=== PATIENT | male | born 1950 | race Caucasian/White ===

== ENCOUNTER → 2016-10-06 | Outpatient (CLI) | payer MEDICARE, OTHER ==
[2016-10-06 10:41] LABS: ALBUMIN 3.9 GM/DL (3.2-5.2); ALBUMIN/GLOBULIN RATIO 1.5 (1.00-1.93); BILIRUBIN,DIRECT 0.2 MG/DL (0.0-0.2); BILIRUBIN,TOTAL 0.8 MG/DL (0.2-1.0); TOTAL PROTEIN 6.5 GM/DL (6.4-8.2)
== END ==
LOC: M WUC 08:20
PROVIDERS: ATTEND Physician Assistant Medical
DX: E11.65 Type 2 diabetes mellitus with hyperglycemia (principal)

== ENCOUNTER → 2017-01-05 | Outpatient (CLI) | payer MEDICARE, OTHER ==
[2017-01-05 13:49] LABS: MEAN CORPUSCULAR HEMOGLOBIN 32.6 pg (27.0-33.0); MEAN CORPUSCULAR HGB CONC 34.5 g/dl (32.0-36.5); MEAN CORPUSCULAR VOLUME 94.6 fl (80.0-96.0); RED CELL DISTRIBUTION WIDTH 12.7 % (11.5-14.5); WHITE BLOOD COUNT 4.9 K/mm3 (4.0-10.0)
[2017-01-05 13:57] LABS: ALBUMIN 3.7 GM/DL (3.2-5.2); ALBUMIN/GLOBULIN RATIO 1.42 (1.00-1.93); ALKALINE PHOSPHATASE 50 U/L (45-117); ALT/SGPT 34 U/L (12-78); ANION GAP 4 MEQ/L (8-16); AST/SGOT 18 U/L (15-37); BILIRUBIN,TOTAL 1.1 MG/DL (0.2-1.0); BLOOD UREA NITROGEN 18 MG/DL (7-18); CALCIUM LEVEL 8.9 MG/DL (8.8-10.2); CARBON DIOXIDE LEVEL 33 MEQ/L (21-32); CHLORIDE LEVEL 107 MEQ/L (98-107); CHOLESTEROL LEVEL 127 MG/DL (<200); CREATININE FOR GFR 0.86 MG/DL (0.70-1.30); GLOMERULAR FILTRATION RATE > 60.0 (>49); GLUCOSE, FASTING 101 MG/DL (80-110); POTASSIUM SERUM 4.2 MEQ/L (3.5-5.1); SODIUM LEVEL 144 MEQ/L (136-145); TOTAL PROTEIN 6.3 GM/DL (6.4-8.2); TRIGLYCERIDES LEVEL 222 MG/DL (<150)
== END ==
LOC: M WUC 08:43
PROVIDERS: ATTEND Physician Assistant
DX: I25.10 Atherosclerotic heart disease of native coronary artery without angina pectoris (principal)

== ENCOUNTER → 2017-04-01 | Outpatient (CLI) | payer MEDICARE, OTHER ==
[2017-04-01 13:52] LABS: ANION GAP 4 MEQ/L (8-16); BLOOD UREA NITROGEN 20 MG/DL (7-18); CALCIUM LEVEL 9.3 MG/DL (8.8-10.2); CARBON DIOXIDE LEVEL 31 MEQ/L (21-32); CHLORIDE LEVEL 109 MEQ/L (98-107); CREATININE FOR GFR 0.86 MG/DL (0.70-1.30); GLOMERULAR FILTRATION RATE > 60.0 (>49); GLUCOSE, FASTING 119 MG/DL (80-110); POTASSIUM SERUM 4.7 MEQ/L (3.5-5.1); SODIUM LEVEL 144 MEQ/L (136-145)
== END ==
LOC: M WUC 08:43
PROVIDERS: ATTEND Physician Assistant Medical
DX: E11.65 Type 2 diabetes mellitus with hyperglycemia (principal)

== ENCOUNTER → 2017-07-09 | Outpatient (CLI) | payer MEDICARE, OTHER ==
[2017-07-09 10:43] LABS: ALBUMIN 3.8 GM/DL (3.2-5.2); ALBUMIN/GLOBULIN RATIO 1.36 (1.00-1.93); ALKALINE PHOSPHATASE 52 U/L (45-117); ALT/SGPT 44 U/L (12-78); ANION GAP 7 MEQ/L (8-16); AST/SGOT 24 U/L (7-37); BLOOD UREA NITROGEN 21 MG/DL (7-18); CALCIUM LEVEL 9.2 MG/DL (8.8-10.2); CARBON DIOXIDE LEVEL 32 MEQ/L (21-32); CHLORIDE LEVEL 104 MEQ/L (98-107); CREATININE FOR GFR 0.83 MG/DL (0.70-1.30); GLOMERULAR FILTRATION RATE > 60.0 (>49); GLUCOSE, FASTING 115 MG/DL (80-110); SODIUM LEVEL 143 MEQ/L (136-145); TOTAL PROTEIN 6.6 GM/DL (6.4-8.2)
== END ==
LOC: M WUC 08:36
PROVIDERS: ATTEND Physician Assistant
DX: I25.10 Atherosclerotic heart disease of native coronary artery without angina pectoris (principal)

== ENCOUNTER → 2017-10-14 | Outpatient (CLI) | payer MEDICARE, OTHER ==
[2017-10-14 12:34] LABS: ANION GAP 8 MEQ/L (8-16); BLOOD UREA NITROGEN 19 MG/DL (7-18); CALCIUM LEVEL 9.1 MG/DL (8.8-10.2); CARBON DIOXIDE LEVEL 30 MEQ/L (21-32); CHLORIDE LEVEL 106 MEQ/L (98-107); CHOLESTEROL LEVEL 131 MG/DL (<200); CHOLESTEROL RISK RATIO 2.519 (<5); CREATININE FOR GFR 0.79 MG/DL (0.70-1.30); GLOMERULAR FILTRATION RATE > 60.0 (>49); GLUCOSE, FASTING 90 MG/DL (70-100); HDL CHOLESTEROL 52 MG/DL (>40); LDL CHOLESTEROL 55.4 MG/DL (<100); NON-HDL-C 79 MG/DL; POTASSIUM SERUM 4.6 MEQ/L (3.5-5.1); SODIUM LEVEL 144 MEQ/L (136-145); TRIGLYCERIDES LEVEL 118 MG/DL (<150)
[2017-10-14 12:56] LABS: MALB URINE SIEMENS 18.1 MG/L; MAU/CREAT RATIO 9.6 MCG/MG (0.0-30.0)
== END ==
LOC: M WUC 08:35
DX: E11.65 Type 2 diabetes mellitus with hyperglycemia (principal)
CPT/HCPCS: 84443

== ENCOUNTER → 2018-01-13 | Outpatient (CLI) | payer MEDICARE, OTHER ==
[2018-01-13 12:23] LABS: HEMOGLOBIN 15.5 g/dl (13.5-17.5); MEAN CORPUSCULAR HEMOGLOBIN 32.1 pg (27.0-33.0); MEAN CORPUSCULAR HGB CONC 34.4 g/dl (32.0-36.5); MEAN CORPUSCULAR VOLUME 93.2 fl (80.0-96.0); PLATELET COUNT, AUTOMATED 161 10^3/uL (150-450); RED BLOOD COUNT 4.83 10^6/uL (4.30-6.10); RED CELL DISTRIBUTION WIDTH 12.6 % (11.5-14.5); WHITE BLOOD COUNT 5.1 10^3/uL (4.0-10.0)
[2018-01-13 12:56] LABS: ALBUMIN 3.8 GM/DL (3.2-5.2); ALBUMIN/GLOBULIN RATIO 1.46 (1.00-1.93); ALKALINE PHOSPHATASE 52 U/L (45-117); ALT/SGPT 26 U/L (12-78); ANION GAP 6 MEQ/L (8-16); AST/SGOT 13 U/L (7-37); BILIRUBIN,TOTAL 0.9 MG/DL (0.2-1.0); BLOOD UREA NITROGEN 15 MG/DL (7-18); CALCIUM LEVEL 8.5 MG/DL (8.8-10.2); CARBON DIOXIDE LEVEL 29 MEQ/L (21-32); CHLORIDE LEVEL 109 MEQ/L (98-107); CHOLESTEROL LEVEL 105 MG/DL (<200); CHOLESTEROL RISK RATIO 2.763 (<5); CREATININE FOR GFR 0.79 MG/DL (0.70-1.30); GLOMERULAR FILTRATION RATE > 60.0 (>49); GLUCOSE, FASTING 100 MG/DL (70-100); HDL CHOLESTEROL 38 MG/DL (>40); LDL CHOLESTEROL 29.6 MG/DL (<100); NON-HDL-C 67 MG/DL; POTASSIUM SERUM 4.5 MEQ/L (3.5-5.1); SODIUM LEVEL 144 MEQ/L (136-145); TOTAL PROTEIN 6.4 GM/DL (6.4-8.2); TRIGLYCERIDES LEVEL 187 MG/DL (<150)
== END ==
LOC: M WUC 08:27
DX: I25.10 Atherosclerotic heart disease of native coronary artery without angina pectoris (principal); I50.32 Chronic diastolic (congestive) heart failure; E78.2 Mixed hyperlipidemia
CPT/HCPCS: 80053

== ENCOUNTER → 2018-08-05 | Outpatient (CLI) | payer MEDICARE, OTHER ==
[2018-08-05 14:01] LABS: ANION GAP 6 MEQ/L (8-16); BLOOD UREA NITROGEN 23 MG/DL (7-18); CALCIUM LEVEL 9.1 MG/DL (8.8-10.2); CARBON DIOXIDE LEVEL 33 MEQ/L (21-32); CHLORIDE LEVEL 105 MEQ/L (98-107); CREATININE FOR GFR 0.95 MG/DL (0.70-1.30); GLOMERULAR FILTRATION RATE > 60.0 (>42); GLUCOSE, FASTING 111 MG/DL (70-100); POTASSIUM SERUM 4.9 MEQ/L (3.5-5.1); SODIUM LEVEL 144 MEQ/L (136-145)
== END ==
LOC: M WUC 09:35
DX: I50.32 Chronic diastolic (congestive) heart failure (principal)
CPT/HCPCS: 80048

== ENCOUNTER → 2018-12-30 | Outpatient (CLI) | payer MEDICARE, OTHER ==
[2018-12-30 09:33] LABS: HEMATOCRIT 47.9 % (42.0-52.0); HEMOGLOBIN 16.4 g/dl (13.5-17.5); MEAN CORPUSCULAR HEMOGLOBIN 32.2 pg (27.0-33.0); MEAN CORPUSCULAR HGB CONC 34.2 g/dl (32.0-36.5); MEAN CORPUSCULAR VOLUME 94.1 fl (80.0-96.0); PLATELET COUNT, AUTOMATED 171 10^3/uL (150-450); RED BLOOD COUNT 5.09 10^6/uL (4.30-6.10); WHITE BLOOD COUNT 5.9 10^3/uL (4.0-10.0)
[2018-12-30 10:03] LABS: ALBUMIN 4.1 GM/DL (3.2-5.2); ALT/SGPT 31 U/L (12-78); AMYLASE 62 U/L (25-115); BILIRUBIN,TOTAL 1.2 MG/DL (0.2-1.0); BLOOD UREA NITROGEN 20 MG/DL (7-18); CALCIUM LEVEL 8.9 MG/DL (8.8-10.2); CARBON DIOXIDE LEVEL 32 MEQ/L (21-32); CHLORIDE LEVEL 106 MEQ/L (98-107); CHOLESTEROL LEVEL 144 MG/DL (<200); CHOLESTEROL RISK RATIO 3.348 (<5); CREATININE FOR GFR 0.83 MG/DL (0.70-1.30); GLOMERULAR FILTRATION RATE > 60.0 (>42); GLUCOSE, FASTING 87 MG/DL (70-100); HDL CHOLESTEROL 43 MG/DL (>40); LDL CHOLESTEROL 54 MG/DL (<100); LIPASE 99 U/L (73-393); NON-HDL-C 101 MG/DL; PROSTATIC SPECIFIC AG MONITOR 0.45 NG/ML (< 4.00); SODIUM LEVEL 144 MEQ/L (136-145); TOTAL PROTEIN 6.7 GM/DL (6.4-8.2); TRIGLYCERIDES LEVEL 235 MG/DL (<150)
[2018-12-30 10:47] LABS: HEMOGLOBIN A1c 7.1 %
== END ==
LOC: M LAB 08:09
PROVIDERS: ATTEND Family Medicine
DX: I10 Essential (primary) hypertension (principal); E03.9 Hypothyroidism, unspecified; E11.9 Type 2 diabetes mellitus without complications; Z87.19 Personal history of other diseases of the digestive system

== ENCOUNTER → 2019-01-12 | Outpatient (CLI) | payer MEDICARE, OTHER ==
[2019-01-12 14:11] LABS: MALB URINE SIEMENS 19.6 MG/L; MAU/CREAT RATIO 14.8 MCG/MG (0.0-30.0)
== END ==
LOC: M WUC 08:45
PROVIDERS: ATTEND Nurse Practitioner Family
DX: E11.65 Type 2 diabetes mellitus with hyperglycemia (principal)

== ENCOUNTER → 2019-01-12 | Outpatient (CLI) | payer MEDICARE, OTHER ==
[2019-01-12 13:30] LABS: HEMATOCRIT 48.2 % (42.0-52.0); HEMOGLOBIN 16.2 g/dl (13.5-17.5); MEAN CORPUSCULAR HEMOGLOBIN 32.4 pg (27.0-33.0); MEAN CORPUSCULAR HGB CONC 33.6 g/dl (32.0-36.5); MEAN CORPUSCULAR VOLUME 96.4 fl (80.0-96.0); PLATELET COUNT, AUTOMATED 170 10^3/uL (150-450); WHITE BLOOD COUNT 5.8 10^3/uL (4.0-10.0)
[2019-01-12 13:35] LABS: ALBUMIN 3.9 GM/DL (3.2-5.2); ALT/SGPT 26 U/L (12-78); BILIRUBIN,TOTAL 0.8 MG/DL (0.2-1.0); BLOOD UREA NITROGEN 21 MG/DL (7-18); CALCIUM LEVEL 9.2 MG/DL (8.8-10.2); CARBON DIOXIDE LEVEL 29 MEQ/L (21-32); CHLORIDE LEVEL 107 MEQ/L (98-107); CHOLESTEROL LEVEL 126 MG/DL (<200); CREATININE FOR GFR 0.82 MG/DL (0.70-1.30); GLOMERULAR FILTRATION RATE > 60.0 (>42); GLUCOSE, FASTING 117 MG/DL (70-100); HDL CHOLESTEROL 39 MG/DL (>40); LDL CHOLESTEROL 41 MG/DL (<100); NON-HDL-C 87 MG/DL; POTASSIUM SERUM 4.3 MEQ/L (3.5-5.1); SODIUM LEVEL 141 MEQ/L (136-145); TOTAL PROTEIN 6.1 GM/DL (6.4-8.2); TRIGLYCERIDES LEVEL 229 MG/DL (<150)
== END ==
LOC: M WUC 08:48
PROVIDERS: ATTEND Physician Assistant
DX: I25.10 Atherosclerotic heart disease of native coronary artery without angina pectoris (principal); I50.32 Chronic diastolic (congestive) heart failure; E78.2 Mixed hyperlipidemia; E11.65 Type 2 diabetes mellitus with hyperglycemia

== ENCOUNTER → 2019-08-07 | Outpatient (CLI) | payer MEDICARE, OTHER ==
[2019-08-07 16:39] LABS: BLOOD UREA NITROGEN 19 MG/DL (7-18); CALCIUM LEVEL 8.7 MG/DL (8.8-10.2); CARBON DIOXIDE LEVEL 32 MEQ/L (21-32); CHLORIDE LEVEL 107 MEQ/L (98-107); CREATININE FOR GFR 0.88 MG/DL (0.70-1.30); GLOMERULAR FILTRATION RATE > 60.0 (>42); GLUCOSE, FASTING 147 MG/DL (70-100); POTASSIUM SERUM 4.2 MEQ/L (3.5-5.1); SODIUM LEVEL 143 MEQ/L (136-145)
== END ==
LOC: M WUC 11:36
PROVIDERS: ATTEND Physician Assistant
DX: I50.32 Chronic diastolic (congestive) heart failure (principal)

== ENCOUNTER → 2019-11-27 | Outpatient (REF) | payer MEDICARE, OTHER ==
[2019-11-27 13:16] LABS: CREATININE, URINE 60.5 MG/DL; MAU/CREAT RATIO 18.1 MCG/MG (0.0-30.0)
== END ==
LOC: M LABDRAW1 09:45
PROVIDERS: ATTEND Nurse Practitioner Family
DX: E11.65 Type 2 diabetes mellitus with hyperglycemia (principal)

== ENCOUNTER → 2020-01-22 | Outpatient (CLI) | payer MEDICARE, OTHER ==
[2020-01-22 10:03] LABS: HEMATOCRIT 48.8 % (42.0-52.0); HEMOGLOBIN 16.4 g/dl (13.5-17.5); MEAN CORPUSCULAR HEMOGLOBIN 31.9 pg (27.0-33.0); MEAN CORPUSCULAR HGB CONC 33.6 g/dl (32.0-36.5); MEAN CORPUSCULAR VOLUME 94.9 fl (80.0-96.0); PLATELET COUNT, AUTOMATED 164 10^3/uL (150-450); RED BLOOD COUNT 5.14 10^6/uL (4.30-6.10); WHITE BLOOD COUNT 4.9 10^3/uL (4.0-10.0)
[2020-01-22 10:09] LABS: ALBUMIN 3.7 GM/DL (3.2-5.2); ALT/SGPT 37 U/L (12-78); BLOOD UREA NITROGEN 20 MG/DL (7-18); CARBON DIOXIDE LEVEL 32 MEQ/L (21-32); CHLORIDE LEVEL 105 MEQ/L (98-107); CHOLESTEROL LEVEL 127 MG/DL (<200); CHOLESTEROL RISK RATIO 2.822 (<5); CREATININE FOR GFR 0.82 MG/DL (0.70-1.30); GLOMERULAR FILTRATION RATE > 60.0 (>42); GLUCOSE, FASTING 89 MG/DL (70-100); HDL CHOLESTEROL 45 MG/DL (>40); LDL CHOLESTEROL 59 MG/DL (<100); NON-HDL-C 82 MG/DL; POTASSIUM SERUM 4.4 MEQ/L (3.5-5.1); SODIUM LEVEL 144 MEQ/L (136-145); TOTAL PROTEIN 6.6 GM/DL (6.4-8.2); TRIGLYCERIDES LEVEL 113 MG/DL (<150)
== END ==
LOC: M WUC 08:02
PROVIDERS: ATTEND Physician Assistant
DX: I25.10 Atherosclerotic heart disease of native coronary artery without angina pectoris (principal); I50.32 Chronic diastolic (congestive) heart failure; E78.2 Mixed hyperlipidemia

== ENCOUNTER → 2020-07-23 | Outpatient (CLI) | payer MEDICARE, OTHER ==
[2020-07-23 11:44] LABS: BLOOD UREA NITROGEN 20 MG/DL (7-18); CALCIUM LEVEL 9.4 MG/DL (8.8-10.2); CARBON DIOXIDE LEVEL 30 MEQ/L (21-32); CHLORIDE LEVEL 106 MEQ/L (98-107); CREATININE FOR GFR 0.88 MG/DL (0.70-1.30); GLOMERULAR FILTRATION RATE > 60.0 (>42); GLUCOSE, FASTING 104 MG/DL (70-100); SODIUM LEVEL 140 MEQ/L (136-145)
== END ==
LOC: M WUC 08:35
PROVIDERS: ATTEND Physician Assistant
DX: I50.32 Chronic diastolic (congestive) heart failure (principal)

== ENCOUNTER → 2021-01-22 | Outpatient (CLI) | payer MEDICARE, OTHER ==
[2021-01-22 11:06] LABS: HEMATOCRIT 48.4 % (42.0-52.0); MEAN CORPUSCULAR HEMOGLOBIN 31.6 pg (27.0-33.0); MEAN CORPUSCULAR HGB CONC 33.1 g/dl (32.0-36.5); MEAN CORPUSCULAR VOLUME 95.7 fl (80.0-96.0); PLATELET COUNT, AUTOMATED 162 10^3/uL (150-450); RED BLOOD COUNT 5.06 10^6/uL (4.30-6.10); WHITE BLOOD COUNT 5.2 10^3/uL (4.0-10.0)
[2021-01-22 11:35] LABS: ALBUMIN 3.8 GM/DL (3.2-5.2); ALT/SGPT 31 U/L (12-78); BILIRUBIN,TOTAL 1.3 MG/DL (0.2-1.0); BLOOD UREA NITROGEN 25 MG/DL (7-18); CALCIUM LEVEL 8.9 MG/DL (8.8-10.2); CARBON DIOXIDE LEVEL 32 MEQ/L (21-32); CHLORIDE LEVEL 108 MEQ/L (98-107); CHOLESTEROL LEVEL 122 MG/DL (<200); CHOLESTEROL RISK RATIO 3.128 (<5); CREATININE FOR GFR 0.86 MG/DL (0.70-1.30); GLOMERULAR FILTRATION RATE > 60.0 (>42); GLUCOSE, FASTING 83 MG/DL (70-100); HDL CHOLESTEROL 39 MG/DL (>40); LDL CHOLESTEROL 49 MG/DL (<100); NON-HDL-C 83 MG/DL; POTASSIUM SERUM 4.8 MEQ/L (3.5-5.1); SODIUM LEVEL 144 MEQ/L (136-145); TOTAL PROTEIN 6.4 GM/DL (6.4-8.2); TRIGLYCERIDES LEVEL 169 MG/DL (<150)
== END ==
LOC: M WUC 08:18
PROVIDERS: ATTEND Physician Assistant
DX: I25.10 Atherosclerotic heart disease of native coronary artery without angina pectoris (principal); I50.32 Chronic diastolic (congestive) heart failure; E78.2 Mixed hyperlipidemia

== ENCOUNTER → 2021-02-25 | Outpatient (REF) | payer MEDICARE, OTHER ==
[2021-02-25 14:24] LABS: MALB URINE SIEMENS 9.5 MG/L; MAU/CREAT RATIO 6.8 MCG/MG (0.0-30.0)
[2021-02-25 14:25] LABS: ALBUMIN 3.8 GM/DL (3.2-5.2); ALT/SGPT 39 U/L (12-78); BLOOD UREA NITROGEN 28 MG/DL (7-18); CALCIUM LEVEL 8.7 MG/DL (8.8-10.2); CARBON DIOXIDE LEVEL 29 MEQ/L (21-32); CHLORIDE LEVEL 108 MEQ/L (98-107); CHOLESTEROL LEVEL 129 MG/DL (<200); CHOLESTEROL RISK RATIO 3.394 (<5); GLOMERULAR FILTRATION RATE > 60.0 (>42); GLUCOSE, FASTING 98 MG/DL (70-100); HDL CHOLESTEROL 38 MG/DL (>40); LDL CHOLESTEROL 63 MG/DL (<100); NON-HDL-C 91 MG/DL; SODIUM LEVEL 143 MEQ/L (136-145); TOTAL PROTEIN 6.3 GM/DL (6.4-8.2); TRIGLYCERIDES LEVEL 139 MG/DL (<150)
== END ==
LOC: M WUC 11:15 → M LAB REF 11:15
PROVIDERS: ATTEND Nurse Practitioner Family
DX: E11.65 Type 2 diabetes mellitus with hyperglycemia (principal); E78.2 Mixed hyperlipidemia

== ENCOUNTER → 2021-03-27 | Outpatient (CLI) | payer MEDICARE, OTHER ==
--- NOTE | 2021-03-27 10:44 | REP ---
INDICATION: ABD PAIN, GALL STONES. COMPARISON: 01/09/2019 which showed fatty infiltration of the liver TECHNIQUE: Transabdominal scanning FINDINGS: Multiple ultrasonographic images of the liver show slight diffuse increased echoes throughout the hepatic parenchyma without evidence of a mass or ductal dilatation. The common bile duct measures approximately 5 mm in its greatest transverse dimension. Multiple ultrasonographic images of the gallbladder show no focal or diffuse gallbladder wall thickening. There are no echogenic foci within the gallbladder lumen, which casts acoustic shadows. There is no pericholecystic edema. Images of the pancreatic region show no gross abnormality. The imaged portion of the right kidney is unremarkable. IMPRESSION: Mild fatty infiltration of the liver. No significant change from the prior exam Accredited by the [employer] in General Ultrasound. <Electronically signed by Jose Ballesteros > 03/27/21 0124
== END ==
LOC: M RAD 10:03
PROVIDERS: ATTEND Family Medicine
DX: R10.9 Unspecified abdominal pain (principal)

== ENCOUNTER → 2021-07-09 | Outpatient (CLI) | payer MEDICARE, OTHER ==
[~2021-07-09] MED LIST: AMLO1TAB24 PO; ATOR80TA59 PO; BAYE81TA10 PO; CARV12.5 PO; CLOP75TA2 PO; COQ-100C5 PO; CULT10CA4 PO; D32000TA2 PO; FISH13602 PO; FLON1SPR; FLUC150T PO; FURO40TA2 PO; INSULANT SC; JARD1TAB PO; LISI40TA4 PO; METF-838 PO; NITR4TASL SL; OCUVTAB4 PO; OMEP-218 PO; REST0.05 OD; leg cramps PO
== END ==
LOC: M LABSMTC 10:30
PROVIDERS: ATTEND Anesthesiology
DX: Z01.812 Encounter for preprocedural laboratory examination (principal); Z20.822 Contact with and (suspected) exposure to COVID-19

== ENCOUNTER 2021-07-14 09:07 | Day surgery (SDC) | payer MEDICARE, OTHER ==
[~2021-07-14] VITALS: Ht 170.2 cm; Wt 76.1 kg
[~2021-07-14 09:07] MED LIST changes: +NS 1,000 ML IV ONE
--- OUTSIDE RECORDS SUMMARY | 2021-07-14 09:21 | CCD | Continuity of Care Document ---
Author Author Jose Armando LUCIA MD Organization Unknown Address [place] [address] Phone [phone] Care Team Providers Care System Operator Name Role Phone Racquel Hudson MD AUTM [phone] Gwyn Chu AUTM [phone] Sancho Workman MD AUTM [phone] Palmira Snell MD AUTM [phone] Chandra Kaur MD AUTM [phone] Natalya Spence AUTM Problems Active Problems Provider Date Coronary arteriosclerosis ZAINA Silva Onset: 11/17/2011 Old myocardial infarction ZAINA Silva Onset: 11/17/2011 Patient post percutaneous transluminal coronary angiop lasty ZAINA Silva Onset: 11/17/2011 Chronic diastolic heart failure ZAINA Silva Onset: 08/18/2011 Benign hypertensive heart disease with congestive card iac failure ZAINA Silva Onset: 08/18/2011 Pure hypercholesterolemia Margo Koroma PA-C Onset: 2013 Aortic valve disorder Margo Koroma PA-C Onset: 08/05/2015 Carotid artery occlusion Carmelo Lucia MD Onset: 02/13/20 16 Dyspnea Carmelo Lucia MD Onset: 04/03/2016 Mixed hyperlipidemia Margo Koroma PA-C Onset: 07/08/2016 Obesity Margo Koroma PA-C Onset: 07/08/2016 Dietary management surveillance Margo Koroma PA-C Onset: 07/14/2017 Secondary pulmonary hypertension Margo Koroma PA-C Onset: 07/27/2019 Social History Type Date Description Comments Sex Unknown Tobacco Use Start: Unknown Never Smoked Cigarettes ETOH Use Consumes Beer 2-4 per week Tobacco Use Start: Unknown End: Unknown Patient is a former smoker occasional pipe smoker during college years, quit over 40 yrs ago Smoking Status Reviewed: 01/29/21 Patient is a former smoker oc casional pipe smoker during college years, quit over 40 yrs ago Exercise Type/Frequency Walks daily 2miles; up/down stairs several times daily Exercise Type/Frequency Does yardwork sporadical ly Exercise Type/Frequency Does housework sporadica lly Exercise Type/Frequency Does gardening sporadica lly Exercise Limitations Fatigue Exercise Limitations Shortness Of Breath Allergies and adverse reactions Active Allergies Criticality Reaction | Severity Comments Date Prednisone Unable to assess criticality Visual Dist 11/10/2006 Niaspan Unable to assess criticality Disoriention , Pickling 11/10/2006 Medications Active Medications SIG Qnty Indications Ordering Provide r Date Omeprazole 20mg Capsules DR 1 by mouth twice every day 180caps Margo Koroma PA-C 07/29/2020 Ammonium Lactate 12% Cream apply as directed, as needed Unknown 01/28/2020 Jardiance 10mg Tablets 1 by mouth every morning Palmira Snell MD 01/20/2018 Amlodipine Besylate 5mg Tablets 1 by mouth every day 90tabs I50.32 Carmelo Lucia MD 07/14/2017 I11.0 [place]-3 Krill Oil 200mg Capsules 1 by mouth every day Unknown 04/02/2016 Victoza 18mg/3ML Solution [facility] as directed Palmira Snell MD 03/16/2016 Aspir-[address] 1 by mouth every day Myriam Hastings MD 01/02/2016 Fluconazole 150mg Tablets 1 by mouth only as needed, as directed Racquel Hudson MD 2015 Plavix 75mg Tablets 1 by mouth every day 90tabs I25.10 Carmelo Lucia MD 12/11/2015 Culturelle Capsules 1 by mouth every day Unknown 08/04/2015 Atorvastatin Calcium 80mg Tablets 1 by mouth every night at bedtime 90tabs E78.0 Carmelo Lucia MD 01/23/2014 I25.10 Cramp Releaf Capsules 1 by mouth as needed for leg cramps Unknown 01/22/2014 Flax Seeds Powder 1 tablespoon by mouth daily Unknown 01/22/2014 Flonase 50mcg/Act Suspension 1 spray each nostril bid/prn Unknown 08/07/2013 Lantus Solostar 100Unit/ML Solutio n inject as directed before bed Palmira Snell MD 04/06 Co-Enzyme Q10 200mg Capsules 1 po daily Palmira Snell MD 04/06/2012 Preservision Areds Capsules Racquel Hudson MD 11/17/2011 Restasis 0.05% Emulsion 1 drop in both eyes bid Racquel Hudson MD 11/17/2011 Metformin HCL ER 500mg Tablets ER 24HR 4 tabs po daily Zhanna Xiong, EDGARDO [employer]ING PLANT OPERATOR 05/01/20 11 Lisinopril 40mg Tablets 1 tablet po daily hs 90tabs I25.10 Carmelo Lucia MD 04/10/2011 R06.02 Vitamin D-1000 1000Unit Tablets 2 po daily Racquel Hudson MD 04/09/2011 Coreg 12.5mg Tablets 1 by mouth twice a day 180tabs I25.10 Carmelo Lucia MD 09/15/2010 R06.02 Furosemide 40mg Tablets 1/2 by mouth daily 45tabs I50.32 Carmelo Lucia MD 11/20/2008 Nitrostat 0.4mg Tablets Sub 1 sl q5min x3 for chest pain 25tabs I25.10 Carmelo Lucia MD Immunizations Description No Information Available Vital Signs Date Vital Result Comment 01/29/2021 11:51am Weight 170.00 lb Home Weight 165lb Height 68 inches 5'8" BMI (Body Mass Index) 25.8 kg/m2 Heart Rate 68 /min Regular Respiratory Rate 16 /min BP Systolic Right Arm 128 mmHg sitting, regular c uff BP Diastolic Right Arm 66 mmHg sitting, regular cuff BP Systolic Left Arm 126 mmHg sitting BP Diastolic Left Arm 66 mmHg sitting 07/30/2020 11:27am Weight 168.00 lb Home Weight 165lb Home weight Height 68 inches 5'8" BMI (Body Mass Index) 25.5 kg/m2 Heart Rate 76 /min Regular Respiratory Rate 16 /min BP Systolic Right Arm 132 mmHg sitting, regular c uff BP Diastolic Right Arm 86 mmHg sitting, regular cuff BP Systolic Left Arm 132 mmHg sitting BP Diastolic Left Arm 82 mmHg sitting Results Test Acquired Date Facility Test Result H/L Range Note Comprehensive Metabolic Profil 01/22/2021 [facility] [phone] Glucose, Fasting 83 mg/dL Normal 70-100 Blood Urea Nitrogen 25 mg/dL High 7-18 Creatinine For GFR 0.86 mg/dL Normal 0.70-1.30 Glomerular Filtration Rate > 60.0 Normal >42 1 Sodium Level 144 mEq/L Normal 136-145 Potassium Serum 4.8 mEq/L Normal 3.5-5.1 Chloride Level 108 mEq/L High 98-107 Carbon Dioxide Level 32 mEq/L Normal 21-32 Anion Gap 4 mEq/L Low 8-16 Calcium Level 8.9 mg/dL Normal 8.8-10.2 Ast/Sgot 16 U/L Normal 7-37 Alt/SGPT 31 U/L Normal 12-78 Alkaline Phosphatase 53 U/L Normal 45-117 Bilirubin,Total 1.3 mg/dL High 0.2-1.0 Total Protein 6.4 GM/DL Normal 6.4-8.2 Albumin 3.8 GM/DL Normal 3.2-5.2 Albumin/Globulin Ratio 1.5 Normal Lipid Panel 01/22/2021 [facility] nter [phone] Triglycerides Level 169 mg/dL High <150 Cholesterol Level 122 mg/dL Normal <200 HDL Cholesterol 39 mg/dL Low >40 LDL Cholesterol 49 mg/dL Normal <100 Non-HDL-C 83 mg/dL Normal Cholesterol Risk Ratio 3.128 Normal <5 Complete Blood Count 01/22/2021 [facility] enter [phone] White Blood Count 5.2 10 Normal 4.0-10.0 Red Blood Count 5.06 10 Normal 4.30-6.10 Hemoglobin 16.0 g/dL Normal 13.5-17.5 Hematocrit 48.4 % Normal 42.0-52.0 Mean Corpuscular Volume 95.7 fl Normal 80.0-96.0 Mean Corpuscular Hemoglobin 31.6 pg Normal 27.0-33.0 Mean Corpuscular HGB Conc 33.1 g/dL Normal 32.0-36.5 Red Cell Distribution Width 12.6 % Normal 11.5-14.5 Platelet Count, Automated 162 10 Normal 150-450 Nucleated Red Blood Cell % 0.0 % Normal 0-0 1 Units are mL/min/1.73 m2 Chronic Kidney Disease Staging per NKF: Stage I & II GFR >=60 Normal to Mildly Decreased Stage III GFR 30-59 Moderately Decreased Stage IV GFR 15-29 Severely Decreased Stage V GFR <15 Very Little GFR Left ESRD GFR <15 on CREATIVE SERVICES DESIGNER Procedures Date Code Description Status 05/05/2021 04602 Chronic Care MGMT 20 Mins Clinical Staff Time Per Calendar Month Completed 05/02/2021 55348 Chronic Care MGMT 20 Mins Clinical Staff Time Per Calendar Month Completed 02/06/2021 52101 Chronic Care MGMT 20 Mins Clinical Staff Time Per Calendar Month Completed 01/29/2021 67945 Office/Outpatient Established Mo d MDM 30-39 Min Completed 01/29/2021 67301 ECG 12-Lead Completed 01/15/2021 64673 Chronic Care MGMT 20 Mins Clinical Staff Time Per Calendar Month Completed Medical Devices Description No Information Available Encounters Type Date Location Provider Dx Diagnosis Office Visit 05/05/2021 9:59a Main Office Carmelo Lucia MD E78.2 Mixed hyperlipidemia I25.10 Athscl heart disease of jose ve coronary artery w/o ang pctrs Office Visit 05/02/2021 8:41a Main Office Carmelo Lucia MD E78.2 Mixed hyperlipidemia I11.0 Hypertensive heart disease w ith heart failure Office Visit 02/06/2021 1:40p Main Office Carmelo Lucia MD I11.0 Hypertensive heart disease with heart failure E78.2 Mixed hyperlipidemia Office Visit 01/29/2021 11:30a Main Office Margo Koroma PA-C I25.1 0 Athscl heart disease of [place] coronary artery w/o ang pctrs I25.2 Old myocardial infarction Z95.5 Presence of coronary angiopl asty implant and graft I50.32 Chronic diastolic (congestiv e) heart failure I11.0 Hypertensive heart disease w ith heart failure I35.8 Other nonrheumatic aortic va lve disorders I27.29 Other secondary pulmonary hy pertension E78.2 Mixed hyperlipidemia I65.23 Occlusion and stenosis of bi lateral carotid arteries Office Visit 01/15/2021 8:59a Main Office Carmelo Lucia MD I25.10 Athscl heart disease of [place] coronary artery w/o ang pctrs I50.32 Chronic diastolic (congestiv e) heart failure Assessments Date Code Description Provider 05/05/2021 E78.2 Mixed hyperlipidemia Carmelo webster MD 05/05/2021 I25.10 Atherosclerotic heart disease of [place] coronary artery with Carmelo Lucia MD 05/02/2021 E78.2 Mixed hyperlipidemia Carmelo webster MD 05/02/2021 I11.0 Hypertensive heart disease with heart failure Carmelo Lucia MD 02/06/2021 I11.0 Hypertensive heart disease with heart failure Carmelo Lucia MD 02/06/2021 E78.2 Mixed hyperlipidemia Carmelo webster MD 01/29/2021 I25.10 Atherosclerotic heart disease of [place] coronary artery with Margo Koroma PA-C 01/29/2021 I25.2 Old myocardial infarction KRIS ParisiC 01/29/2021 Z95.5 Presence of coronary angioplasty implant and graft KRIS ParisiC 01/29/2021 I50.32 Chronic diastolic (congestive) h eart failure KRIS ParisiC 01/29/2021 I11.0 Hypertensive heart disease with heart failure KRIS ParisiC 01/29/2021 I35.8 Other nonrheumatic aortic valve disorders KRIS ParisiC 01/29/2021 I27.29 Other secondary pulmonary hypert ension ARRON Parisi-C 01/29/2021 E78.2 Mixed hyperlipidemia KRIS CobbC 01/29/2021 I65.23 Occlusion and stenosis of bilate ral carotid arteries Margo Koroma PA-C 01/15/2021 I25.10 Atherosclerotic heart disease of [place] coronary artery with Carmelo Lucia MD 01/15/2021 I50.32 Chronic diastolic (congestive) h eart failure Carmelo Lucia MD Plan of Treatment Future Appointment(s):* 07/31/2021 10:15 am - Margo Koroma PA-C at Main Office 01/29/2021 - Margo Koroma PA-C* I25.10 Atherosclerotic heart disease of [place] coronary artery with * I25.2 Old myocardial infarction * Z95.5 Presence of coronary angioplasty implant and graft * I50.32 Chronic diastolic (congestive) heart failure* New Labs:* Basic Metabolic Profile, Scheduled: 07/29/21 * Recommendations:* Follow a 2 grams sodium diet and 50 ounces fluid restriction per 24 hour and do daily weights. Call the office for weight gain of 3 lbs or more. * I11.0 Hypertensive heart disease with heart failure * I35.8 Other nonrheumatic aortic valve disorders * I27.29 Other secondary pulmonary hypertension * E78.2 Mixed hyperlipidemia * I65.23 Occlusion and stenosis of bilateral carotid arteries * All * Follow up:* 6 month follow up. Functional Status Functional Condition Comment Date Status Independent with all ADL's Activ e Mental Status Description No Information Available Referrals Description No Information Available
--- OUTSIDE RECORDS SUMMARY | 2021-07-14 09:21 | CCD | Continuity of Care Document ---
Author Author Jose Armando FLORES SUPERVISOR [employer] Organization Unknown Address [address] [place] [address] Phone [phone] Care Team Providers Care Boilermaker Apprentice Name Role Phone Adela Hudson MD AUTM [phone] Problems Active Problems Provider Date Type II diabetes mellitus uncontrolled Palmira Snell MD O nset: 08/25/2011 Essential hypertension Palmira Snell MD Onset: 08/25/2011 Mixed hyperlipidemia Palmira Snell MD Onset: 08/25/2011 Insulin Palmira Snell MD Onset: 08/25/2011 Streptococcus Pneumonia & Influenz Vaccination & Inocu lation Palmira Snell MD Onset: 08/25/2011 Examination Other Specified Natalya Brown PA-C Onset : 02/02/2014 Needs influenza immunization Natalya Brown PA-C Onse t: 05/14/2014 Type 2 diabetes mellitus Natalya Brown PA-C Onset: 0 02/28/2015 Long-term current use of insulin Paulina Weaver DO Onset : 12/31/2015 Aortic valve disorder Onset: 08/05/2015 Benign hypertensive heart disease with congestive cardiac fa ilure Onset: 08/18/2011 Carotid artery occlusion Onset: 02/13/20 16 Chronic diastolic heart failure Onset: 1 10/19/2010 Dietary management surveillance Onset: 1 09/13/2016 Dyspnea Onset: 04/03/2016 Pure hypercholesterolemia Onset: 014 Social History Type Date Description Comments Sex Unknown Tobacco Use Start: Unknown Never Smoked Cigarettes ETOH Use Occasionally consumes alcohol Tobacco Use Start: Unknown Patient has never smoked Smoking Status Reviewed: 03/06/21 Patient has never smoked Allergies and adverse reactions Active Allergies Criticality Reaction | Severity Comments Date Prednisone Unable to assess criticality rash,halluci nation 04/01/2011 Niacin Unable to assess criticality hallucinatio ns,rash 04/01/2011 Medications Active Medications SIG Qnty Indications Ordering Provide r Date BD Uf Mini Pen Needle [id number] Use as Directed Two Times A Day 200un its Eli Flores, BRITTANIE 12/19/2020 Onetouch Ultra Strips use as directed 3 times a day as needed e11.65 300units E11.65 Eli Flores, BRITTANIE 08/29/2020 Onetouch Ultra 2 w/Device Kit disp one meter e11.65 test blood sugars 3 x daily 1units E11.65 Eli Flores, BRITTANIE 11/27/2019 Diflucan 150mg Tablets Take 1 tab PO, if symptoms persists after 3 days take another tab PO (prn) 2tabs E11 .65 Eli Flores, BRITTANIE 05/23/2018 BD Pen Needle/Mini/Ultrafine/31G X 3/16" 31G X 5 mm Misc use as directed 2 x daily , mdd=2 200units Eli Flores, BRITTANIE 01/19/2018 Jardiance 10mg Tablets take one tablet by mouth every day 90tabs E11.65 Eli Flores NP 8 Victoza 18mg/3ML Solution Pen-Inje ct Inject 1.8MG Subcutaneously Once Daily Maximum Daily Dose = 1.8MG 27units E11.65 Eli Flores NP 08/13/2014 Lantus Solostar 100U nit/ML Solution Pen-Inject Inject 28 Units Once Daily Subcutaneously 24units Eli Flores, BRITTANIE 08/13/2014 Dellatouch Delica Lancets Extra Fine 33G Misc Test Three Times A Day as Needed 300units Eli Flores NP 02/02/2014 Metformin HCL ER 500mg Tablets ER 24HR take four tablets by mouth q hs with food. 360tabs Pippa Flores NP 04/16/[address] 1 tab by mouth once daily Unknown Amlodipine Besylate 5mg Tablets 1 by mouth every day Unknown Clopidogrel Bisulfate 75mg Tablets 1 by mouth every day Unknown Atorvastatin Calcium 80mg Tablets 1 tab by mouth once daily. Unknown Restasis 0.05% Emulsion gtt once a day in ea eye Unknown Flax Seed daily Unknown Fish Oil 1000mg Capsules 2 tab by mouth once daily 200caps Unknown Coq10 1 tab by mouth once daily Unknown Vitamin D-3 2000Unit Tablets 2 tab by mouth once daily. 30tabs Unknown Carvedilol 12.5mg Tablets 1 tab by mouth twice daily. Unknown Aspirin 81mg daily Unknown Lasix 20mg Tablets 1/2 tab by mouth once daily. 30tabs Unknown Lisinopril 40mg Tablets 1 tab by mouth once daily. 30tabs Unknown Immunizations Description No Information Available Vital Signs Date Vital Result Comment 03/06/2021 8:47am BP Systolic 124 mmHg BP Diastolic 63 mmHg Heart Rate 77 /min Height 66 inches 5'6" Weight 169.00 lb BMI (Body Mass Index) 27.3 kg/m2 O2 % BldC Oximetry 98 % 11/21/2020 9:44am BP Systolic 160 mmHg BP Diastolic 88 mmHg Heart Rate 71 /min Body Temperature 95.3 F Height 66 inches 5'6" Weight 172.00 lb BMI (Body Mass Index) 27.8 kg/m2 O2 % BldC Oximetry 96 % Results Test Acquired Date Facility Test Result H/L Range Note Laboratory test finding 03/06/2021 In House Glucose 89 Hemoglobin A1c 7.2% Urine Micro/Creat Ratio Random 02/25/2021 [facility] [address] [place] [address] [phone] Creatinine, Urine 138.0 mg/dL Normal Malb Urine Siemens 9.5 mg/L Normal Toney/Creat Ratio 6.8 MCG/MG Normal 0.0-30.0 1 Lipid Panel 02/25/2021 [facility] [address] [place] [address] [phone] - Triglycerides Level 139 mg/dL Normal <150 Cholesterol Level 129 mg/dL Normal <200 HDL Cholesterol 38 mg/dL Low >40 LDL Cholesterol 63 mg/dL Normal <100 Non-HDL-C 91 mg/dL Normal Cholesterol Risk Ratio 3.394 Normal <5 Comprehensive Metabolic Profil 02/25/[address] [address] [phone] - Glucose, Fasting 98 mg/dL Normal 70-100 Blood Urea Nitrogen 28 mg/dL High 7-18 Creatinine For GFR 0.90 mg/dL Normal 0.70-1.30 Glomerular Filtration Rate > 60.0 Normal >42 2 Sodium Level 143 mEq/L Normal 136-145 Potassium Serum 4.0 mEq/L Normal 3.5-5.1 Chloride Level 108 mEq/L High 98-107 Carbon Dioxide Level 29 mEq/L Normal 21-32 Anion Gap 6 mEq/L Low 8-16 Calcium Level 8.7 mg/dL Low 8.8-10.2 Ast/Sgot 16 U/L Normal 7-37 Alt/SGPT 39 U/L Normal 12-78 Alkaline Phosphatase 48 U/L Normal 45-117 Bilirubin,Total 1.0 mg/dL Normal 0.2-1.0 Total Protein 6.3 GM/DL Low 6.4-8.2 Albumin 3.8 GM/DL Normal 3.2-5.2 Albumin/Globulin Ratio 1.5 Normal Complete Blood Count 01/22/[address] [address] [phone])- - White Blood Count 5.2 10 Normal 4.0-10.0 [...] Blood Cell % 0.0 % Normal 0-0 Comprehensive Metabolic Profil 01/22/[address] [address] [phone] - Glucose, Fasting 83 mg/dL Normal 70-100 Blood Urea Nitrogen 25 mg/dL High 7-18 Creatinine For GFR 0.86 mg/dL Normal 0.70-1.30 Glomerular Filtration Rate > 60.0 Normal >42 3 Sodium Level 144 mEq/L Normal 136-145 Potassium [...] Albumin/Globulin Ratio 1.5 Normal Lipid Panel 01/22/2021 [facility] [address] [place] [address] [phone] - Triglycerides Level 169 mg/dL High <150 Cholesterol Level 122 mg/dL Normal <200 HDL Cholesterol 39 mg/dL Low >40 LDL Cholesterol 49 mg/dL Normal <100 Non-HDL-C 83 mg/dL Normal Cholesterol Risk Ratio 3.128 Normal <5 1 THE [employer] [facility] STATES THAT MICROALBUMINURIA IS PRESENT IF THE MICROALBUMIN/CREATININE RATIO EXCEEDS 30 MCG/MG. THE THRESHOLD FOR CLINICAL ALBUMINURIA IS REACHED AT 300 MCG/MG. THE CLASSIFICATION OF A PATIENT SHOULD BE BASED UPON AT LEAST 2 OF 3 ABNORMAL RESULTS ON SPECIMENS COLLECTED WITHIN A 3 TO 6 MONTH TIME FRAME. 2 Units are mL/min/1.73 m2 Chronic Kidney Disease Staging per NKF: Stage I & II GFR >=60 Normal to Mildly Decreased Stage III GFR 30-59 Moderately Decreased Stage IV GFR 15-29 Severely Decreased Stage V GFR <15 Very Little GFR Left ESRD GFR <15 on DIRECTOR OF RESEARCH 3 Units are mL/min/1.73 m2 Chronic Kidney Disease Staging per NKF: Stage I & II GFR >=60 Normal to Mildly Decreased Stage III GFR 30-59 Moderately Decreased Stage IV GFR 15-29 Severely Decreased Stage V GFR <15 Very Little GFR Left ESRD GFR <15 on DIRECTOR OF RESEARCH Procedures Date Code Description Status 03/06/2021 61716 Office/Outpatient Established [facility] MDM 40-54 Min Completed 11/21/2020 [id number] Diabetic Foot Exam Completed Medical Devices Description No Information Available Encounters Type Date Location Provider Dx Diagnosis Office Visit 03/06/2021 8:45a DR. Palmira Flores, N P E11.65 Type 2 diabetes mellitus with hyperglycemia I10 Essential (primary) hyperten melquiades E78.2 Mixed hyperlipidemia Z79.4 assisted (current) use of i nsulin R11.2 Nausea with vomiting, unspec ified Assessments Date Code Description Provider 07/07/2021 E11.65 Type 2 diabetes mellitus with hy perglycemia Eli Flores, BRITTANIE 07/07/2021 I10 Essential (primary) hypertension Eli Flores, SUPERVISOR [employer]ING 07/07/2021 E78.2 Mixed hyperlipidemia Eli balbuena, BRITTANIE 07/07/2021 Z79.4 watermelon inspector (current) use of insul in Eli Flores NP 07/07/2021 R11.2 Nausea with vomiting, unspecifie d Eli Flores, BRITTANIE 03/06/2021 E11.65 Type 2 diabetes mellitus with hy perglycemia Eli Flores, SUPERVISOR [employer]ING 03/06/2021 I10 Essential (primary) hypertension Eli Flores, SUPERVISOR [employer]ESSING 03/06/2021 E78.2 Mixed hyperlipidemia Eli balbuena, BRITTANIE 03/06/2021 Z79.4 watermelon inspector (current) use of insul in Eli Flores NP 03/06/2021 R11.2 Nausea with vomiting, unspecifie d Eli Flores NP Plan of Treatment 07/07/2021 - Eli Flores NP* E11.65 Type 2 diabetes mellitus with hyperglycemia* Comments:* 03/06/21- In office hemoglobin A1c= 7.2 % (7.5 %, 7.3%, 6.8%, 6.8%, 7.2%, 7.6%, 7.5%, 7.6%,7.3%, 7.2%, 6.9%. ) Random BS= 89 Meter downloaded and reviewed- fasting- 60-143, dinner- 91-217Current meds: Victoza 1.8 mg, Metformin ER 500mg 4 tabs dinner, Jardiance 10 mg dailyCurrent insulin doses: Lantus 28 units Q HSPatient has a history of CAD. Encouraged better diet. No late eating. In light of nausea an vomiting- will hold Victoza. Continue Metformin and Jardiance. RTO 4 months * Follow up:* Follow up in 4 months. JL/CBF * I10 Essential (primary) hypertension* Comments:* On Lisinopril 40mg [facility]Following [facility] * E78.2 Mixed hyperlipidemia* Comments:* Goal for LDL< 70 due to CAD and DM. Labs done 02/25/21- chol= 129, trig= 139, HDL= 38, LDL= 63 * Z79.4 assisted (current) use of insulin* Comments:* No dose adjustments today. * R11.2 Nausea with vomiting, unspecified* Comments:* Pt notes nausea every day. Vomiting 1-2 times monthly for past year Pt states this [place] was seen by PCP and given Omeprazole and instruted to eat yogurt. Has never been seen by gastro. Has been on Victoza for past 10 years. At this time- will hold Victoza. Ebcouragedd pt to call PCP and request referral to GI Functional Status Description No Information Available Mental Status Description No Information Available Referrals Description No Information Available
--- OUTSIDE RECORDS SUMMARY | 2021-07-14 09:21 | CCD | Continuity of Care Document ---
Author Author Jose Armando LUCIA MD Organization Unknown Address [facility] [place] [address] Phone [phone] Care Team Providers Care Computer Customer Support Specialist Name Role Phone Racquel Hudson MD AUTM [phone] Gwyn Chu AUTM [phone] Sancho Workman MD AUTM [phone] Palmira Snell MD AUTM [phone] Chandra Kaur MD AUTM [phone] Natalya Spence AUTM [phone] Problems Active Problems Provider Date Coronary arteriosclerosis [...] 90tabs I50.32 Carmelo Lucia MD 07/14/2017 I11.0 [place]-3 Krill Oil 200mg Capsules 1 by mouth every day Unknown 04/02/2016 Victoza 18mg/3ML Solution [facility] as directed Palmira Snell MD 03/16/2016 Aspir-81 [...] 4 tabs po daily Zhanna Xiong, EDGARDO CELL BIOLOGY SCIENTIST 05/01/20 11 Lisinopril 40mg Tablets 1 tablet [...] H/L Range Note Comprehensive Metabolic Profil 01/22/2021 [facility] [phone] Glucose, Fasting 83 mg/dL Normal 70-100 Blood [...] Albumin/Globulin Ratio 1.5 Normal Lipid Panel 01/22/2021 [facility] nter [phone] Triglycerides Level 169 mg/dL High <150 Cholesterol Level 122 mg/dL Normal <200 HDL Cholesterol 39 mg/dL Low >40 LDL Cholesterol 49 mg/dL Normal <100 Non-HDL-C 83 mg/dL Normal Cholesterol Risk Ratio 3.128 Normal <5 Complete Blood Count 01/22/2021 [facility] enter [phone] White Blood Count 5.2 10 Normal 4.0-10.0 [...] Little GFR Left ESRD GFR <15 on CABLE MOCK UP ASSEMBLER Procedures Date Code Description Status 05/05/2021 53413 Chronic Care MGMT 20 Mins Clinical Staff Time Per Calendar Month Completed 05/02/2021 67740 Chronic Care MGMT 20 Mins Clinical Staff Time Per Calendar Month Completed 02/06/2021 75144 Chronic Care MGMT 20 Mins Clinical Staff Time Per Calendar Month Completed 01/29/2021 57341 Office/Outpatient Established Mo d MDM 30-39 Min Completed 01/29/2021 32340 ECG 12-Lead Completed 01/15/2021 49963 Chronic Care MGMT 20 Mins Clinical Staff [...] PA-C I25.1 0 Athscl heart disease of [place] coronary artery w/o ang pctrs I25.2 Old [...] Lucia MD I25.10 Athscl heart disease of [place] coronary artery w/o ang pctrs I50.32 Chronic diastolic (congestiv e) heart failure Assessments Date Code Description Provider 05/05/2021 E78.2 Mixed hyperlipidemia Carmelo webster MD 05/05/2021 I25.10 Atherosclerotic heart disease of [place] coronary artery with Carmelo Lucia MD 05/02/2021 E78.2 Mixed hyperlipidemia Carmelo webster MD 05/02/2021 I11.0 Hypertensive heart disease with heart failure Carmelo Lucia MD 02/06/2021 I11.0 Hypertensive heart disease with heart failure Carmelo Lucia MD 02/06/2021 E78.2 Mixed hyperlipidemia Carmelo webster MD 01/29/2021 I25.10 Atherosclerotic heart disease of [place] coronary artery with Margo Koroma PA-C 01/29/2021 [...] PA-C 01/15/2021 I25.10 Atherosclerotic heart disease of [place] coronary artery with Carmelo Lucia MD 01/15/2021 I50.32 Chronic diastolic (congestive) h eart failure Carmelo Lucia MD Plan of Treatment Future Appointment(s):* 07/31/2021 10:15 am - Margo Koroma PA-C at Main Office 01/29/2021 - Margo Koroma PA-C* I25.10 Atherosclerotic heart disease of [place] coronary artery with * I25.2 Old myocardial [...]
--- OUTSIDE RECORDS SUMMARY | 2021-07-14 09:21 | CCD | Continuity of Care Document ---
Author Author Jose Armando LUCIA MD Organization Unknown Address [place] [address] Phone [phone] Care Team Providers Care Gear Grinding Machine Operator Name Role Phone Racquel Hudson MD AUTM [phone] Gwyn Chu AUTM [phone] Sancho Workman MD AUTM [phone] Palmira Snell MD AUTM [phone] Chandra Kaur MD AUTM [phone] Natalya Spence AUTM Problems Active Problems Provider [...] 90tabs I50.32 Carmelo Lucia MD 07/14/2017 I11.0 [place]-3 Krill Oil 200mg Capsules 1 by mouth every day Unknown 04/02/2016 Victoza 18mg/3ML Solution [facility] as directed Palmira Snell MD 03/16/2016 [...] 4 tabs po daily Zhanna Xiong, EDGARDO SAP TREASURY CONSULTANT 05/01/20 11 Lisinopril 40mg Tablets 1 tablet [...] H/L Range Note Comprehensive Metabolic Profil 01/22/2021 [facility] [phone] Glucose, Fasting 83 mg/dL Normal 70-100 Blood [...] Albumin/Globulin Ratio 1.5 Normal Lipid Panel 01/22/2021 [facility] nter [phone] Triglycerides Level 169 mg/dL High <150 Cholesterol Level 122 mg/dL Normal <200 HDL Cholesterol 39 mg/dL Low >40 LDL Cholesterol 49 mg/dL Normal <100 Non-HDL-C 83 mg/dL Normal Cholesterol Risk Ratio 3.128 Normal <5 Complete Blood Count 01/22/2021 [facility] enter [phone] White Blood Count 5.2 10 Normal 4.0-10.0 [...] Little GFR Left ESRD GFR <15 on ATHLETIC EQUIPMENT MANAGER Procedures Date Code Description Status 05/05/2021 90841 Chronic Care MGMT 20 Mins Clinical Staff Time Per Calendar Month Completed 05/02/2021 02466 Chronic Care MGMT 20 Mins Clinical Staff Time Per Calendar Month Completed 02/06/2021 92157 Chronic Care MGMT 20 Mins Clinical Staff Time Per Calendar Month Completed 01/29/2021 33935 Office/Outpatient Established Mo d MDM 30-39 Min Completed 01/29/2021 61932 ECG 12-Lead Completed 01/15/2021 32100 Chronic Care MGMT 20 Mins Clinical Staff Time Per Calendar Month Completed Medical Devices Description No Information Available Encounters Type Date Location Provider Dx Diagnosis Office Visit 05/02/2021 8:41a Main Office Carmelo Lucia MD E78.2 Mixed hyperlipidemia I11.0 Hypertensive heart disease w ith heart failure Office Visit 02/06/2021 1:40p Main Office Carmelo Lucia MD I11.0 Hypertensive heart disease with heart failure E78.2 Mixed hyperlipidemia Office Visit 01/29/2021 11:30a Main Office Margo Koroma PA-C I25.1 0 Athscl heart disease of [place] coronary artery w/o ang pctrs I25.2 Old [...] Lucia MD I25.10 Athscl heart disease of [place] coronary artery w/o ang pctrs I50.32 Chronic diastolic (congestiv e) heart failure Assessments Date Code Description Provider 05/05/2021 E78.2 Mixed hyperlipidemia Carmelo webster MD 05/05/2021 I25.10 Atherosclerotic heart disease of [place] coronary artery with Carmelo Lucia MD 05/02/2021 E78.2 Mixed hyperlipidemia Carmelo webster MD 05/02/2021 I11.0 Hypertensive heart disease with heart failure Carmelo Lucia MD 02/06/2021 I11.0 Hypertensive heart disease with heart failure Carmelo Lucia MD 02/06/2021 E78.2 Mixed hyperlipidemia Carmelo webster MD 01/29/2021 I25.10 Atherosclerotic heart disease of [place] coronary artery with Margo Koroma PA-C 01/29/2021 I25.2 Old myocardial infarction KRIS ParisiC 01/29/2021 Z95.5 Presence of coronary angioplasty implant and graft KRIS ParisiC 01/29/2021 I50.32 Chronic diastolic (congestive) h eart failure KRIS ParisiC 01/29/2021 I11.0 Hypertensive heart disease with heart failure KRIS ParisiC 01/29/2021 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 KRIS ParisiC 01/29/2021 I27.29 Other secondary pulmonary hypert ension KRIS ParisiC 01/29/2021 E78.2 Mixed hyperlipidemia KRIS CobbC 01/29/2021 I65.23 Occlusion and stenosis of bilate ral carotid arteries KRIS ParisiC 01/15/2021 I25.10 Atherosclerotic heart disease of [place] coronary artery with Carmelo Lucia MD 01/15/2021 I50.32 Chronic diastolic (congestive) h eart failure Carmelo Lucia MD Plan of Treatment Future Appointment(s):* 07/31/2021 10:15 am - Margo Koroma PA-C at Main Office 01/29/2021 - Margo Koroma PA-C* I25.10 Atherosclerotic heart disease of [place] coronary artery with * I25.2 Old myocardial [...]
--- OUTSIDE RECORDS SUMMARY | 2021-07-14 09:21 | CCD | Continuity of Care Document ---
Author Author Jose Armando FLORES MOTORS AND CONTROLS TESTER Organization Unknown Address [address] [place] [address] Phone [phone] Care Team Providers Care Brick And Block Mason Name Role Phone Adela Hudson MD AUTM [phone] Problems Active Problems Provider Date Type II [...] Onset: 1 10/19/2010 Dietary management surveillance Onset: 09/13/2016 Dyspnea Onset: 04/03/2016 Pure hypercholesterolemia Onset: 014 Social History Type Date Description Comments Sex Unknown Tobacco Use Start: Unknown Never Smoked Cigarettes ETOH Use Occasionally consumes alcohol Tobacco Use Start: Unknown Patient has never smoked Smoking Status Reviewed: 07/07/21 Patient has never smoked Allergies and adverse reactions Active Allergies Criticality Reaction | Severity Comments Date Prednisone Unable to assess criticality rash,halluci nation 04/01/2011 Niacin Unable to assess criticality hallucinatio ns,rash 04/01/2011 Medications Active Medications SIG Qnty Indications Ordering Provide r Date BD Uf Mini Pen Needle [id number] Use as Directed Two Times A Day [...] 2 x daily , mdd=2 200units Eli Flores NP 01/19/2018 Jardiance 10mg Tablets take one tablet by mouth every day 90tabs E11.65 Eli Flores NP 8 Lantus Solostar 100U nit/ML Solution Pen-Inject Inject 28 Units Once Daily Subcutaneously 24units Eli Flores, BRITTANIE 08/13/2014 Onetouch Delica Lancets Extra Fine 33G Misc Test Three Times A Day as Needed 300units Eli Flores, BRITTANIE 02/02/2014 Metformin HCL ER 500mg Tablets ER [...] Available Vital Signs Date Vital Result Comment 07/07/2021 9:46am BP Systolic 132 mmHg BP Diastolic 76 mmHg Heart Rate 76 /min Height 66 inches 5'6" Weight 173.00 lb BMI (Body Mass Index) 27.9 kg/m2 O2 % BldC Oximetry 97 % 03/06/2021 8:47am BP Systolic 124 mmHg BP Diastolic 63 mmHg Heart Rate 77 /min Height 66 inches 5'6" Weight 169.00 lb BMI (Body Mass Index) 27.3 kg/m2 O2 % BldC Oximetry 98 % Results Test Acquired Date Facility Test Result H/L Range Note Laboratory test finding 07/07/2021 In House Glucose 136 Hemoglobin A1c 8.1 Laboratory test finding 03/06/2021 In House Glucose 89 Hemoglobin A1c 7.2% Urine Micro/Creat Ratio Random 02/25/[address] [address] (315)- - Creatinine, Urine 138.0 mg/dL Normal Malb Urine Siemens 9.5 mg/L Normal Toney/Creat Ratio 6.8 MCG/MG Normal 0.0-30.0 1 Lipid Panel 02/25/2021 [facility] ntr [address] [place] [address] [phone] - Triglycerides Level 139 mg/dL Normal <150 Cholesterol Level 129 mg/dL Normal <200 HDL Cholesterol 38 mg/dL Low >40 LDL Cholesterol 63 mg/dL Normal <100 Non-HDL-C 91 mg/dL Normal Cholesterol Risk Ratio 3.394 Normal <5 Comprehensive Metabolic Profil 02/25/2021 [facility] [address] [place] [address] [phone] Glucose, Fasting 98 mg/dL Normal 70-100 [...] Ratio 1.5 Normal Complete Blood Count 01/22/[address] [address] (315)- - White Blood Count 5.2 10 [...] % Normal 0-0 Comprehensive Metabolic Profil 01/22/[address] [address] (315)- - Glucose, Fasting 83 mg/dL Normal [...] Albumin/Globulin Ratio 1.5 Normal Lipid Panel 01/22/2021 [facility] ntr [address] [place] [address] [phone] - Triglycerides Level 169 mg/dL High <150 Cholesterol Level 122 mg/dL Normal <200 HDL Cholesterol 39 mg/dL Low >40 LDL Cholesterol 49 mg/dL Normal <100 Non-HDL-C 83 mg/dL Normal Cholesterol Risk Ratio 3.128 Normal <5 1 THE [place] [employer] ATION STATES THAT MICROALBUMINURIA IS [...] Little GFR Left ESRD GFR <15 on SPORTS BOOK WRITER 3 Units are mL/min/1.73 m2 Chronic Kidney Disease Staging per NKF: Stage I & II GFR >=60 Normal to Mildly Decreased Stage III GFR 30-59 Moderately Decreased Stage IV GFR 15-29 Severely Decreased Stage V GFR <15 Very Little GFR Left ESRD GFR <15 on SPORTS BOOK WRITER Procedures Date Code Description Status 03/06/2021 10313 Office/Outpatient Established [facility] MDM 40-54 Min Completed 11/21/2020 [id number] Diabetic Foot Exam Completed Medical Devices Description No Information Available Encounters Type Date Location Provider Dx Diagnosis Office Visit 03/06/2021 8:45a DR. Palmira Flores, Nathalia P E11.65 Type 2 diabetes mellitus with hyperglycemia I10 Essential (primary) hyperten melquiades E78.2 Mixed hyperlipidemia Z79.4 halfway (current) use of i nsulin R11.2 Nausea with vomiting, unspec ified Assessments Date Code Description Provider 07/07/2021 E11.65 Type 2 diabetes mellitus with hy perglycemia Eli Flores, BRITTANIE 07/07/2021 I10 Essential (primary) hypertension Eli Flores, BRITTANIE 07/07/2021 E78.2 Mixed hyperlipidemia Eli balbuena, BRITTANIE 07/07/2021 Z79.4 halfway (current) use of insul in Eli Flores NP 07/07/2021 R11.2 Nausea with vomiting, unspecifie d Eli Flores NP 03/06/2021 E11.65 Type 2 diabetes mellitus with hy perglycemia Eli Flores, BRITTANIE 03/06/2021 I10 Essential (primary) hypertension Eli Flores, BRITTANIE 03/06/2021 E78.2 Mixed hyperlipidemia Eli balbuena, BRITTANIE 03/06/2021 Z79.4 halfway (current) use of insul in Eli Flores NP 03/06/2021 R11.2 Nausea with vomiting, unspecifie d Eli Flores NP Plan of Treatment 07/07/2021 - Eli Flores NP* E11.65 Type 2 diabetes mellitus with hyperglycemia* Comments:* 07/07/21- In office hemoglobin A1c= (7.2 %, 7.5 %, 7.3%, 6.8%, 6.8%, 7.2%, 7.6%, 7.5%, 7.6%,7.3%, 7.2%, 6.9%. ) Random BS= 136 Meter downloaded and reviewed- fasting- 60-143, dinner- 91-217Current meds: Metformin ER 500mg 4 tabs dinner, Jardiance 10 mg dailyCurrent insulin doses: Lantus 28 units Q HSPatient has a history of CAD. Encouraged better diet. No late eating. In light of nausea and vomiting- held Victoza. Continue Metformin and Jardiance. RTO 4 months * Follow up:* Follow up in 4 months. JL/CBF * I10 Essential (primary) hypertension* Comments:* On Lisinopril [facility]mg [facility] BP 132/76 * E78.2 Mixed hyperlipidemia* Comments:* Goal for LDL< 70 due to CAD and DM. Labs done 02/25/21- chol= 129, trig= 139, HDL= 38, LDL= 63 * Z79.4 halfway (current) use of insulin* Comments:* No dose adjustments today. * R11.2 Nausea with vomiting, unspecified* Comments:* Pt notes nausea every day. Vomiting 1-2 times monthly for past year Pt [place] this [place]CP and given Omeprazole and instruted to eat yogurt. Has never been seen by gastro. Has been on Victoza for past 10 years. Held Victoza. Pt states all sx have resolved since stopping Victoza. Pt is scheduled for endo/colonoscopy Functional Status Description No Information Available Mental Status Description No Information Available Referrals Description No Information Available
--- OUTSIDE RECORDS SUMMARY | 2021-07-14 09:21 | CCD | Continuity of Care Document ---
Author Author Jose Armando LUCIA MD Organization Unknown Address [facility] [place] [address] Phone [phone] Care Team Providers Care Food Management Aide Name Role Phone Racquel Hudson MD AUTM [phone] Gwyn Chu AUTM [phone] Sancho Workman MD AUTM [phone] Palmira Snell MD AUTM [phone] Chandra Kaur MD AUTM [phone] Natalya Spence AUTM Problems Active Problems Provider [...] 90tabs I50.32 Carmelo Lucia MD 07/14/2017 I11.0 [place]-3 Krill Oil 200mg Capsules 1 by mouth every day Unknown 04/02/2016 Victoza 18mg/3ML Solution [facility] as directed Palmira Snell MD 03/16/2016 Aspir-81 [...] 4 tabs po daily Zhanna Xiong, EDGARDO CROWN PRESSER 05/01/20 11 Lisinopril 40mg Tablets 1 tablet [...] H/L Range Note Comprehensive Metabolic Profil 01/22/2021 [facility] [phone] Glucose, Fasting 83 mg/dL Normal 70-100 Blood [...] Albumin/Globulin Ratio 1.5 Normal Lipid Panel 01/22/2021 [facility] nter [phone] Triglycerides Level 169 mg/dL High <150 Cholesterol Level 122 mg/dL Normal <200 HDL Cholesterol 39 mg/dL Low >40 LDL Cholesterol 49 mg/dL Normal <100 Non-HDL-C 83 mg/dL Normal Cholesterol Risk Ratio 3.128 Normal <5 Complete Blood Count 01/22/2021 [facility] enter [phone] White Blood Count 5.2 10 Normal 4.0-10.0 [...] Little GFR Left ESRD GFR <15 on BUFFING MACHINE OPERATOR SEMIAUTOMATIC Procedures Date Code Description Status 05/05/2021 57443 Chronic Care MGMT 20 Mins Clinical Staff Time Per Calendar Month Completed 05/02/2021 34997 Chronic Care MGMT 20 Mins Clinical Staff Time Per Calendar Month Completed 02/06/2021 68439 Chronic Care MGMT 20 Mins Clinical Staff Time Per Calendar Month Completed 01/29/2021 28935 Office/Outpatient Established Mo d MDM 30-39 Min Completed 01/29/2021 90485 ECG 12-Lead Completed 01/15/2021 61662 Chronic Care MGMT 20 Mins Clinical Staff [...] PA-C I25.1 0 Athscl heart disease of [place] coronary artery w/o ang pctrs I25.2 Old [...] Lucia MD I25.10 Athscl heart disease of [place] coronary artery w/o ang pctrs I50.32 Chronic diastolic (congestiv e) heart failure Assessments Date Code Description Provider 05/05/2021 E78.2 Mixed hyperlipidemia Carmelo webster MD 05/05/2021 I25.10 Atherosclerotic heart disease of [place] coronary artery with Carmelo Lucia MD 05/02/2021 E78.2 Mixed hyperlipidemia Carmelo webster MD 05/02/2021 I11.0 Hypertensive heart disease with heart failure Carmelo Lucia MD 02/06/2021 I11.0 Hypertensive heart disease with heart failure Carmelo Lucia MD 02/06/2021 E78.2 Mixed hyperlipidemia Carmelo webster MD 01/29/2021 I25.10 Atherosclerotic heart disease of [place] coronary artery with Margo Koroma PA-C 01/29/2021 [...] PA-C 01/15/2021 I25.10 Atherosclerotic heart disease of [place] coronary artery with Carmelo Lucia MD 01/15/2021 I50.32 Chronic diastolic (congestive) h eart failure Carmelo Lucia MD Plan of Treatment Future Appointment(s):* 07/31/2021 10:15 am - Margo Koroma PA-C at Main Office 01/29/2021 - Margo Koroma PA-C* I25.10 Atherosclerotic heart disease of [place] coronary artery with * I25.2 Old myocardial [...]
--- OUTSIDE RECORDS SUMMARY | 2021-07-14 09:21 | CCD | Continuity of Care Document ---
Author Author Jose Armando FLORES RAGMAN Organization Unknown Address [address] [place] [address] Phone [phone] Care Team Providers Care Plant Mechanic Name Role Phone Adela Hudson MD AUTM [phone] Problems Active Problems Provider Date Type II [...] SIG Qnty Indications Ordering Provide r Date Jardiance 25mg Tablets take one tablet by mouth every day 30tabs E11.65 Eli Flores, BRITTANIE 1 BD Uf Mini Pen Needle [id number] Use as Directed Two Times A Day 200un its Eli Flores NP 12/19/2020 Onetouch Ultra Strips use as directed 3 times a day as needed e11.65 300units E11.65 Eli Flores NP 08/29/2020 Onetouch Ultra 2 w/Device Kit disp one meter e11.65 test blood sugars 3 x daily 1units E11.65 Eli Flores, BRITTANIE 11/27/2019 Diflucan 150mg Tablets Take 1 tab PO, if symptoms persists after 3 days take another tab PO (prn) 2tabs E11 .65 Eli Flores NP 05/23/2018 BD Pen Needle/Mini/Ultrafine/31G X 3/16" 31G X 5 mm Misc use as directed 2 x daily , mdd=2 200units Eli Flores NP 01/19/2018 Lantus Solostar 100U nit/ML Solution Pen-Inject Inject 28 Units Once Daily Subcutaneously 24units Eli Flores, BRITTANIE 08/13/2014 Onetouch Delica Lancets Extra Fine 33G Misc Test Three Times A Day as Needed 300units Eli Flores NP 02/02/2014 Metformin HCL ER 500mg Tablets ER 24HR take four tablets by mouth every at bedtime with food. 360tabs Eli Flores NP 04/16/[address] [...] A1c 7.2% Urine Micro/Creat Ratio Random 02/25/[address] [address] (315)- - Creatinine, Urine 138.0 mg/dL Normal Malb Urine Siemens 9.5 mg/L Normal Toney/Creat Ratio 6.8 MCG/MG Normal 0.0-30.0 1 Lipid Panel 02/25/2021 [facility] ntr [address] [place] [address] (315)- - Triglycerides Level 139 mg/dL Normal <150 Cholesterol Level 129 mg/dL Normal <200 HDL Cholesterol 38 mg/dL Low >40 LDL Cholesterol 63 mg/dL Normal <100 Non-HDL-C 91 mg/dL Normal Cholesterol Risk Ratio 3.394 Normal <5 Comprehensive Metabolic Profil 02/25/2021 [facility] [address] [place] [address] (315)- - Glucose, Fasting 98 mg/dL Normal [...] Ratio 1.5 Normal Complete Blood Count 01/22/[address] [address] (315)- - White Blood Count 5.2 10 [...] % Normal 0-0 Comprehensive Metabolic Profil 01/22/[address] [address] (315)- - Glucose, Fasting 83 mg/dL Normal [...] Albumin/Globulin Ratio 1.5 Normal Lipid Panel 01/22/2021 [facility] ntr [address] [place] [address] (101)- - Triglycerides Level 169 mg/dL High <150 Cholesterol Level 122 mg/dL Normal <200 HDL Cholesterol 39 mg/dL Low >40 LDL Cholesterol 49 mg/dL Normal <100 Non-HDL-C 83 mg/dL Normal Cholesterol Risk Ratio 3.128 Normal <5 1 THE [place] [employer] [employer] ATION STATES THAT MICROALBUMINURIA IS [...] Little GFR Left ESRD GFR <15 on VALIDATION CONSULTANT 3 Units are mL/min/1.73 m2 Chronic Kidney Disease Staging per NKF: Stage I & II GFR >=60 Normal to Mildly Decreased Stage III GFR 30-59 Moderately Decreased Stage IV GFR 15-29 Severely Decreased Stage V GFR <15 Very Little GFR Left ESRD GFR <15 on VALIDATION CONSULTANT Procedures Date Code Description Status 07/07/2021 94534 Office/Outpatient Established Mo d MDM 30-39 Min Completed 03/06/2021 74693 Office/Outpatient Established Hi gh MDM 40-54 Min Completed 11/21/2020 [id number] Diabetic Foot Exam Completed Medical Devices Description No Information Available Encounters Type Date Location Provider Dx Diagnosis Office Visit 07/07/2021 9:45a DR. Palmira Flores, N P E11.65 Type 2 diabetes mellitus with hyperglycemia I10 Essential (primary) hyperten melquiades E78.2 Mixed hyperlipidemia Z79.4 shelter (current) use of i nsulin R11.2 Nausea with vomiting, unspec ified Office Visit 03/06/2021 8:45a DR. Palmira Flores, N P E11.65 Type 2 diabetes mellitus with hyperglycemia I10 Essential (primary) hyperten melquiades E78.2 Mixed hyperlipidemia Z79.4 shelter (current) use of i nsulin R11.2 Nausea with vomiting, unspec ified Assessments Date Code Description Provider 07/07/2021 E11.65 Type 2 diabetes mellitus with hy perglycemia Eli Flores, BRITTANIE 07/07/2021 I10 Essential (primary) hypertension Eli Flores, RAGMAN 07/07/2021 E78.2 Mixed hyperlipidemia Eli balbuena, RAGMAN 07/07/2021 Z79.4 shelter (current) use of insul in Eli Flores, RAGMAN 07/07/2021 R11.2 Nausea with vomiting, unspecifie d Eli Flores, RAGMAN 03/06/2021 E11.65 Type 2 diabetes mellitus with hy perglycemia Eli Flores, RAGMAN 03/06/2021 I10 Essential (primary) hypertension Eli Flores, RAGMAN 03/06/2021 E78.2 Mixed hyperlipidemia Eli balbuena, RAGMAN 03/06/2021 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 ) Random BS= 136 Meter downloaded and reviewed- fasting- 88-226, predinner- 156-266Current meds: Metformin ER 500mg 4 tabs dinner, Jardiance 10 mg dailyCurrent insulin doses: Lantus 28 units Q HSPatient has a history of CAD. Encouraged better diet. No late eating. In light of nausea and vomiting- held Victoza. Continue Metformin and Jardiance, but will increase JArdiance 25 mg po qd. Will check BMP in 1 month. RTO 3 months * Follow up:* Follow up in 3 months. JL/CBF * I10 Essential (primary) hypertension* Comments:* On Lisinopril 40mg po [facility]dFollowing [facility]. BP 132/76 * E78.2 Mixed hyperlipidemia* Comments:* Goal for LDL< 70 due to CAD and DM. 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 * R11.2 Nausea with vomiting, unspecified* Comments:* Pt notes nausea every day. Vomiting 1-2 times monthly for past year Pt states this started when he traveled to [place] last yearPt was seen by PCP and [...]
--- OUTSIDE RECORDS SUMMARY | 2021-07-14 09:22 | CCD | Continuity of Care Document ---
Author Author Jose Armando CASTILLO M.D. Organization Unknown Address [address] [place] [id number] Phone [phone] Care Team Providers Care Human Services Assistant Name Role Phone Adela Hudson M.D. AUTM [phone] Problems Active Problems Provider Date Screening for malignant neoplasm of colon Russel garcia M.D. Onset: 05/20/2021 Social History Type Date Description Comments Sex Unknown ETOH Use Occasionally Tobacco Use Start: Unknown Patient has never smoked Allergies and adverse reactions Description No Known Drug Allergies Medications Active Medications SIG Qnty Indications Ordering Provide r Date Sutab [id number] Tablets as directed 1box Russel Castillo M.D. 05/20/2021 Fluconazole 100mg Tablets Take One Tablet By Mouth Every Day Unknown Leg Cramps Tablets Unknown Culturelle Capsules by [facility] every day Unknown Fish Oil Wheaton-3 1000mg Capsules Unknown Coq10 200mg Capsules Unknown Vitamin D 50mcg (1999 Ut) Capsules Unknown Preservision Areds 2 Areds 2 Capsules Unknown Restasis 0.05% Emulsion Unknown Fluticasone Propionate 50mcg/Act Suspension Unknown Aspirin Adult Low Dose 81mg Tablets DR Unknown Jardiance 10mg Tablets Take One Tablet By Mouth Every Day Unknown Lantus Solostar 100U nit/ML Solution Pen-Inject Eli Kaminski NP Metformin HCL ER 500mg Tablets ER 24HR Take Four Tablets By Mouth AT Bedtime With Food Unknown Clopidogrel Bisulfate 75mg Tablets Take One Tablet By Mouth Every Day Unknown Carvedilol 12.5mg Tablets Margo Koroma RPA-C Furosemide 40mg Tablets Take 1/2 Tablet By Mouth Once Daily Unknown Atorvastatin Calcium 80mg Tablets Take One Tablet By Mouth AT Bedtime Unknown Lisinopril 40mg Tablets Take One Tablet By Mouth AT Bedtime Unknown Nitroglycerin 0.4mg Tablets Sub Place One Tablet Under The Tongue Every 5 Minutes For Up To 3 Doses as Needed Fo Unknown Amlodipine Besylate 5mg Tablets Margo Kormoa RPA-C Immunizations Description No Information Available Vital Signs Date Vital Result Comment 05/20/2021 9:11am Height 67 inches 5'7" Weight 174.00 lb BP Systolic 132 mmHg BP Diastolic 88 mmHg Heart Rate 63 /min BMI (Body Mass Index) 27.2 kg/m2 Weight 78.926 kg Body Temperature 96.6 F Results Description No Information Available Procedures Date Code Description Status 05/20/2021 61355 Office/Outpatient New Moderate M DM 45-59 Minutes Completed Medical Devices Description No Information Available Encounters Type Date Location Provider Dx Diagnosis Office Visit 05/20/2021 9:00a Main Office Russel Castillo M.D. Z 12.11 Encounter for screening for malignant neoplasm of colon K21.9 Gastro-esophageal reflux dis ease without esophagitis Assessments Date Code Description Provider 05/20/2021 Z12.11 Screening for malignant neoplasm of colon Russel Castillo M.D. 05/20/2021 K21.9 Gastroesophageal reflux disease Russel Castillo M.D. Plan of Treatment Future Appointment(s):* 07/01/2021 6:00 am - [facility] at Main Office * 07/14/2021 8:15 am - Russel Castillo M.D. at Main Office 05/20/2021 - Russel Castillo M.D.* Z12.11 Screening for malignant neoplasm of colon* Comments:* 71 yo wm who presents for a screening colonoscopy/egd due to a h/o upper gi symptoms of nausea/vomiting/dyspepsia. Last scope was in 2009. No c/o abdominal pain, weight loss, change in bowel habits, or rectal bleeding. No family h/o colon cancer. No h/o chest pain, or sob.Plan:1.Schedule patient for a colonoscopy + egd.2.Informed consent given to the patient.3.Pt. advised to stop aspirin,plavix, and anticoagulants at least 3 to 7 days prior to the procedure. * K21.9 Gastroesophageal reflux disease* Comments:* As above. Functional Status Description No Information Available Mental Status Description No Information Available Referrals Description No Information Available
--- OUTSIDE RECORDS SUMMARY | 2021-07-14 09:23 | CCD ---
Author Author [facility] Organization [facility] Address Unknown Phone Unavailable Care Team Providers Care Forge Tender Name Role Phone Edu Castillo MD Unavailable Unavailable Edu Castillo MD Unavailable Unavailable Edu Castillo MD Unavailable Unavailable Edu Castillo MD Unavailable Unavailable Edu Castillo MD Unavailable Unavailable Edu Castillo MD Unavailable Unavailable Edu Castillo MD Unavailable Unavailable Edu Castillo MD Unavailable Unavailable Edu Castillo MD Unavailable Unavailable Edu Castillo MD Unavailable Unavailable Edu Castillo MD Unavailable Unavailable Edu Castillo MD Unavailable Unavailable Edu Castillo MD Unavailable Unavailable Edu Castillo MD Unavailable Unavailable Edu Castillo MD Unavailable Unavailable Edu Castillo MD Unavailable Unavailable Edu Castillo MD Unavailable Unavailable Edu Castillo MD Unavailable Unavailable Edu Castillo MD Unavailable Unavailable Edu Castillo MD Unavailable Unavailable Edu Castillo MD Unavailable Unavailable Edu Castillo MD Unavailable Unavailable Edu Castillo MD Unavailable Unavailable Edu Castillo MD Unavailable Unavailable Edu Castillo MD Unavailable Unavailable Edu Castillo MD Unavailable Unavailable Edu Castillo MD Unavailable Unavailable Edu Castillo MD Unavailable Unavailable Edu Castillo MD Unavailable Unavailable Edu Castillo MD Unavailable Unavailable Edu Castillo MD Unavailable Unavailable Edu Castillo MD Unavailable Unavailable Edu Castillo MD Unavailable Unavailable Edu Castillo MD Unavailable Unavailable Edu Castillo MD Unavailable Unavailable Edu Castillo MD Unavailable Unavailable Edu Castillo MD Unavailable Unavailable Edu Castillo MD Unavailable Unavailable Edu Castillo MD Unavailable Unavailable Edu Castillo MD Unavailable Unavailable Edu Castillo MD Unavailable Unavailable Edu Castillo MD Unavailable Unavailable Edu Castillo MD Unavailable Unavailable Edu Castillo MD Unavailable Unavailable Edu Castillo MD Unavailable Unavailable Edu Castillo MD Unavailable Unavailable Edu Castillo MD Unavailable Unavailable Edu Castillo MD Unavailable Unavailable Edu Castillo MD Unavailable Unavailable Edu Castillo MD Unavailable Unavailable Edu Castillo MD Unavailable Unavailable RESTREPOShira Sorensen MD Unavailable Unavailable Shira RESTREPO MD Unavailable Unavailable RESTREPOShira MD Unavailable Unavailable RESTREPOShira Sorensen MD Unavailable Unavailable RESTREPOShira Sorensen MD Unavailable Unavailable RESTREPOShira Sorensen MD Unavailable Unavailable Shira RESTREPO MD Unavailable Unavailable RESTREPOShira Sorensen MD Unavailable Unavailable Shira RESTREPO MD Unavailable Unavailable Shira RESTREPO MD Unavailable Unavailable RESTREPOShira Sorensen MD Unavailable Unavailable RESTREPOShira Sorensen MD Unavailable Unavailable RESTREPOShira Sorensen MD Unavailable Unavailable RESTREPOShira Sorensen MD Unavailable Unavailable RESTREPOShira Sorensen MD Unavailable Unavailable RESTREPOShira Sorensen MD Unavailable Unavailable Shira RESTREPO MD Unavailable Unavailable RESTREPOShira Sorensen MD Unavailable Unavailable RESTREPOShira Sorensen MD Unavailable Unavailable Shira RESTREPO MD Unavailable Unavailable RESTREPOShira Sorensen MD Unavailable Unavailable Shira RESTREPO MD Unavailable Unavailable Shira RESTREPO MD Unavailable Unavailable Shira RESTREPO MD Unavailable Unavailable Shira RESTREPO MD Unavailable Unavailable Shira RESTREPO MD Unavailable Unavailable Shira RESTREPO MD Unavailable Unavailable Shira RESTREPO MD Unavailable Unavailable Shira RESTREPO MD Unavailable Unavailable Shira RESTREPO MD Unavailable Unavailable Shira RESTREPO MD Unavailable Unavailable RESTREPOShira Sorensen MD Unavailable Unavailable Shira RESTREPO MD Unavailable Unavailable Shira RESTREPO MD Unavailable Unavailable Shira RESTREPO MD Unavailable Unavailable Shira RESTREPO MD Unavailable Unavailable Shira RESTREPO MD Unavailable Unavailable Shira RESTREPO MD Unavailable Unavailable Shira RESTREPO MD Unavailable Unavailable Shira RESTREPO MD Unavailable Unavailable Shira RESTREPO MD Unavailable Unavailable Shira RESTREPO MD Unavailable Unavailable Shira RESTREPO MD Unavailable Unavailable Shira RESTREPO MD Unavailable Unavailable Shira RESTREPO MD Unavailable Unavailable Shira RESTREPO MD Unavailable Unavailable Shira RESTREPO MD Unavailable Unavailable Shira RESTREPO MD Unavailable Unavailable Shira RESTREPO MD Unavailable Unavailable Shira RESTREPO MD Unavailable Unavailable Shira RESTREPO MD Unavailable Unavailable Shira RESTREPO MD Unavailable Unavailable Shira RESTREPO MD Unavailable Unavailable Shira RESTREPO MD Unavailable Unavailable Symenow, Tess Margo PA Unavailable Unavailable Symenow, Tess Margo PA Unavailable Unavailable Symenow, Tess Margo PA Unavailable Unavailable Symenow, Tess Margo PA Unavailable Unavailable Symenow, Tess Margo PA Unavailable Unavailable Symenow, Tess Margo PA Unavailable Unavailable Symenow, Tess Margo PA Unavailable Unavailable Symenow, Tess Margo PA Unavailable Unavailable Symenow, Tess Margo PA Unavailable Unavailable Symenow, Tess Margo PA Unavailable Unavailable Symenow, Tess Margo PA Unavailable Unavailable Symenow, Tess Margo PA Unavailable Unavailable Symenow, Tess Margo PA Unavailable Unavailable Symenow, Tess Margo PA Unavailable Unavailable Symenow, Tess Margo PA Unavailable Unavailable Symenow, Tess Margo PA Unavailable Unavailable Symenow, Tess Margo PA Unavailable Unavailable Symenow, Tess Margo PA Unavailable Unavailable Symenow, Tess Margo PA Unavailable Unavailable Symenow, Tess Margo PA Unavailable Unavailable Symenow, Tess Margo PA Unavailable Unavailable Symenow, Tess Margo PA Unavailable Unavailable Symenow, Tess Margo PA Unavailable Unavailable Symenow, Tess Margo PA Unavailable Unavailable Symenow, Tess Margo PA Unavailable Unavailable Symenow, Tess Margo PA Unavailable Unavailable Symenow, Tess Margo PA Unavailable Unavailable Symenow, Tess Margo PA Unavailable Unavailable Symenow, Tess Margo PA Unavailable Unavailable Symenow, Tess Margo PA Unavailable Unavailable Symenow, Tess Margo PA Unavailable Unavailable Symenow, Tess Margo PA Unavailable Unavailable Symenow, Tess Margo PA Unavailable Unavailable Symenow, Tess Margo PA Unavailable Unavailable SANDRA, B ADWOA FINAL ASSEMBLER BOAT Unavailable Unavailable SANDRA, B ADWOA FINAL ASSEMBLER BOAT Unavailable Unavailable SANDRA, B ADWOA FINAL ASSEMBLER BOAT Unavailable Unavailable SANDRA, B ADWOA FINAL ASSEMBLER BOAT Unavailable Unavailable SANDRA, B ADWOA FINAL ASSEMBLER BOAT Unavailable Unavailable SANDRA, B ADWOA FINAL ASSEMBLER BOAT Unavailable Unavailable SANDRA, B ADWOA FINAL ASSEMBLER BOAT Unavailable Unavailable SANDRA, B ADWOA FINAL ASSEMBLER BOAT Unavailable Unavailable SANDRA, B ADWOA FINAL ASSEMBLER BOAT Unavailable Unavailable SANDRA, B ADWOA FINAL ASSEMBLER BOAT Unavailable Unavailable SANDRA, B ADWOA FINAL ASSEMBLER BOAT Unavailable Unavailable SANDRA, B ADWOA FINAL ASSEMBLER BOAT Unavailable Unavailable SANDRA, B ADWOA FINAL ASSEMBLER BOAT Unavailable Unavailable SANDRA, B ADWOA FINAL ASSEMBLER BOAT Unavailable Unavailable SANDRA, B ADWOA FINAL ASSEMBLER BOAT Unavailable Unavailable SANDRA, B ADWOA FINAL ASSEMBLER BOAT Unavailable Unavailable SANDRA, B ADWOA FINAL ASSEMBLER BOAT Unavailable Unavailable SANDRA, B ADWOA FINAL ASSEMBLER BOAT Unavailable Unavailable SANDRA, B ADWOA FINAL ASSEMBLER BOAT Unavailable Unavailable SANDRA, B ADWOA FINAL ASSEMBLER BOAT Unavailable Unavailable SANDRA, B ADWOA FINAL ASSEMBLER BOAT Unavailable Unavailable SANDRA, B ADWOA FINAL ASSEMBLER BOAT Unavailable Unavailable SANDRA, B ADWOA FINAL ASSEMBLER BOAT Unavailable Unavailable SANDRA, B ADWOA FINAL ASSEMBLER BOAT Unavailable Unavailable SANDRA, B ADWOA FINAL ASSEMBLER BOAT Unavailable Unavailable SANDRA, B ADWOA FINAL ASSEMBLER BOAT Unavailable Unavailable SANDRA, B ADWOA FINAL ASSEMBLER BOAT Unavailable Unavailable SANDRA, B ADWOA FINAL ASSEMBLER BOAT Unavailable Unavailable SANDRA, B ADWOA FINAL ASSEMBLER BOAT Unavailable Unavailable SANDRA, B ADWOA FINAL ASSEMBLER BOAT Unavailable Unavailable SANDRA, B ADWOA FINAL ASSEMBLER BOAT Unavailable Unavailable SANDRA, B ADWOA FINAL ASSEMBLER BOAT Unavailable Unavailable SANDRA, B ADWOA FINAL ASSEMBLER BOAT Unavailable Unavailable SANDRA, B ADWOA FINAL ASSEMBLER BOAT Unavailable Unavailable SANDRA, B ADWOA FINAL ASSEMBLER BOAT Unavailable Unavailable SANDRA, B ADWOA FINAL ASSEMBLER BOAT Unavailable Unavailable SANDRA, B ADWOA FINAL ASSEMBLER BOAT Unavailable Unavailable SANDRA, B ADWOA FINAL ASSEMBLER BOAT Unavailable Unavailable SANDRA, B ADWOA FINAL ASSEMBLER BOAT Unavailable Unavailable SANDRA, B ADWOA FINAL ASSEMBLER BOAT Unavailable Unavailable SANDRA, B ADWOA FINAL ASSEMBLER BOAT Unavailable Unavailable SANDRA, B ADWOA FINAL ASSEMBLER BOAT Unavailable Unavailable SANDRA, B ADWOA FINAL ASSEMBLER BOAT Unavailable Unavailable SANDAR, B ADWOA FINAL ASSEMBLER BOAT Unavailable Unavailable SANDRA, B ADWOA FINAL ASSEMBLER BOAT Unavailable Unavailable SANDRA, B ADWOA FINAL ASSEMBLER BOAT Unavailable Unavailable SANDRA, B ADWOA FINAL ASSEMBLER BOAT Unavailable Unavailable SANDRA, B ADWOA FINAL ASSEMBLER BOAT Unavailable Unavailable SANDRA, B ADWOA FINAL ASSEMBLER BOAT Unavailable Unavailable SANDRA, B ADWOA FINAL ASSEMBLER BOAT Unavailable Unavailable SANDRA, B ADWOA FINAL ASSEMBLER BOAT Unavailable Unavailable SANDRA, B ADWOA FINAL ASSEMBLER BOAT Unavailable Unavailable SANDRA, B ADWOA FINAL ASSEMBLER BOAT Unavailable Unavailable SANDRA, B ADWOA FINAL ASSEMBLER BOAT Unavailable Unavailable SANDRA, B ADWOA FINAL ASSEMBLER BOAT Unavailable Unavailable SANDRA, B ADWOA FINAL ASSEMBLER BOAT Unavailable Unavailable SANDRA, B ADWOA FINAL ASSEMBLER BOAT Unavailable Unavailable SANDRA, B ADWOA FINAL ASSEMBLER BOAT Unavailable Unavailable SANDRA, B ADWOA FINAL ASSEMBLER BOAT Unavailable Unavailable SANDRA, B ADWOA FINAL ASSEMBLER BOAT Unavailable Unavailable SANDRA, B ADWOA FINAL ASSEMBLER BOAT Unavailable Unavailable SANDRA, B ADWOA FINAL ASSEMBLER BOAT Unavailable Unavailable Re-disclosure Warning The records that you are about to access may contain information from federally-assisted alcohol or drug abuse programs. If such information is present, then the following federally mandated warning applies: This information has been disclosed to you from records protected by federal confidentiality rules (42 CFR part 2). The federal rules prohibit you from making any further disclosure of this information unless further disclosure is expressly permitted by the written consent of the person to whom it pertains or as otherwise permitted by 42 CFR part 2. A general authorization for the release of medical or other information is NOT sufficient for this purpose. The Federal rules restrict any use of the information to criminally investigate or prosecute any alcohol or drug abuse patient.The records that you are about to access may contain highly sensitive health information, the redisclosure of which is protected by Article 27-F of the [facility] Public Health law. If you continue you may have access to information: Regarding HIV / AIDS; Provided by facilities licensed or operated by the [facility] Office of Mental Health; or Provided by the [facility] Office for People With Developmental Disabilities. If such information is present, then the following [facility] mandated warning applies: This information has been disclosed to you from confidential records which are protected by state law. State law prohibits you from making any further disclosure of this information without the specific written consent of the person to whom it pertains, or as otherwise permitted by law. Any unauthorized further disclosure in violation of state law may result in a fine or senior care sentence or both. A general authorization for the release of medical or other information is NOT sufficient authorization for further disc losure. Family History Family Member Name Family Member Gender Family Member Status Date o f Status Description Data Source(s) Unknown Unknown Problem [facility] ([facility]) Unknown Female Problem [facility] ([facility]) Unknown Female Problem [facility] ([facility]) Unknown Female Problem [facility] ([facility]) Unknown Female Problem [facility] ([facility]) Unknown Female Problem [facility] ([facility] Unknown Female Problem [facility] ([facility]) Unknown Unknown Problem [facility] ([facility] Unknown Unknown Problem [facility] ([facility]) Unknown Unknown Problem [facility] ([facility]) Encounters Encounter Providers Location Date Indications Data Source(s ) Outpatient Attender: ADWOA FLORES NP Physical Therapy 08:45:00 AM EST [facility] ([facility]) Outpatient Attender: Russel Castillo MD Main Office 05/20/2021 09:00:00 AM EDT [facility] ([facility]) Office Visit Attender: ANNE-MARIE RESTREPO MD Main Office 05/05/2021 09:59:0 0 AM EDT [facility] ([facility]) Office Visit Attender: ANNE-MARIE RESTREPO MD Main Office 05/02/2021 08:41:0 0 AM EDT [facility] ([facility]) Outpatient Attender: ADWOA FLORES NP Physical Therapy 08:45:00 AM EDT [facility] ([facility]) Office Visit Attender: ANNE-MARIE RESTREPO MD Main Office 02/06/2021 01:40:0 0 PM EDT [facility] ([facility]) Outpatient Attender: Margo HELLER Main Office 01/29/2021 11:30:00 AM EDT [facility] ([facility]) Office Visit Attender: ANNE-MARIE RESTREPO MD Main Office 01/15/2021 08:59:0 0 AM EDT [facility] ([facility]) Office Visit Attender: ANNE-MARIE RESTREPO MD Main Office 12/20/2020 01:20:0 0 PM EDT [facility] ([facility]) Outpatient Attender: ADWOA FLORES NP Physical Therapy 09:45:00 AM EDT [facility] ([facility]) Office Visit Attender: ANNE-MARIE RESTREPO MD Main Office 09/25/2020 02:56:0 0 PM EST [facility] ([facility]) Office Visit Attender: ANNE-MARIE RESTREPO MD Main Office 08/19/2020 12:09:0 0 PM EST [facility] ([facility]) Outpatient Attender: Margo HELLER Main Office 07/30/2020 10:30:00 AM EST [facility] ([facility]) Office Visit Attender: ANNE-MARIE RESTREPO MD Main Office 07/10/2020 02:58:0 0 PM EST [facility] ([facility]) Office Visit Attender: ANNE-MARIE RESTREPO MD Main Office 06/04/2020 03:17:0 0 PM EDT [facility] ([facility]) Outpatient Attender: ADWOA FLORES NP Physical Therapy 09:00:00 AM EDT [facility] ([facility] Immunizations Vaccine Date Status Description Data Source(s) COVID-19 VACCINE Moderna 06/17/2021 12:00:00 AM EDT completed [facility] Vaccine Series Complete: YESThis Data wa s Submitted to [facility]. COVID-19 VACCINE Moderna 10/10/2020 12:00:00 AM EST completed [facility] Vaccine Series Complete: YESThis Data wa s Submitted to [facility]. COVID-19 VACCINE, MRNA-1273, LNP-S (MODERNA)/PF 10/10/2020 1 2:00:00 AM EST completed [facility] COVID-19 VACCINE, MRNA-1273, LNP-S (MODERNA)/PF 09/12/2020 1 2:00:00 AM EST completed [facility] COVID-19 VACCINE Moderna 09/12/2020 12:00:00 AM EST completed [facility] Vaccine Series Complete: NOThis Data was Submitted to [facility]. Medications Medication Brand Name Start Date Product Form Dose Route Admi nistrative Instructions Pharmacy Instructions Status Indications Reaction Description Data Source(s) 24 HR Metformin hydrochloride 500 MG Extended Release Oral T ablet METFORMIN HCL 07/08/2021 12:00:00 AM EST tablet extended release 24 hr 360 TAKE FOUR TABLETS BY MOUTH AT BEDTIME WITH FOOD TAKE FOUR TABLETS BY MOUTH AT BEDTIME WITH FOOD SOLD: 07/10/2021 [facility] 25 mg 07/07/2021 12:00:00 AM EST tablet 30 TAKE ONE TABLET BY MOUTH EVERY DAY TAKE ONE TABLET BY MOUTH EVERY DAY SOLD: 07/10/2021 [facility] empagliflozin 25 MG Oral Tablet [Jardiance] Jardiance 07/07/2021 12:00:00 AM EST ORAL active [facility] ([facility]) 5 mg 06/28/2021 12:00:00 AM EDT tablet 90 TAKE ONE TABLET BY MOUTH EVERY DAY TAKE ONE TABLET BY MOUTH EVERY DAY SOLD: 06/30/2021 [facility] 100 mcg/0.5 mL 06/17/2021 12:00:00 AM EDT suspension 0 INJECT DIRECTED PER STANDING ORDER INJECT DIRECTED PER STANDING ORDER SOLD: 06/17/2021 [facility] 3 ML Insulin Glargine 100 UNT/ML Pen Injector [Lantus] 100 unit/mL (3 mL) INSULIN GLARGINE,[email or web address] 06/03/2021 12:00:00 AM EDT insulin pen 24 INJECT 28 UNITS SUBCUTANEOUSLY EVERY DAY INJECT 28 UNITS SUBCUTANEOUSLY EVERY DAY SOLD: 06/06/2021 [facility] 240 mcg/0.7 mL 05/30/2021 12:00:00 AM EDT syringe 0 INJECT INTRAMUSCULARLY DIRECTED INJECT INTRAMUSCULARLY DIRECTED SOLD: 05/30/2021 [facility] carvedilol 12.5 MG Oral Tablet CARVEDILOL 05/29/2021 12:00:00 AM EDT tablet 180 TAKE ONE TABLET BY MOUTH TWICE A DAY TAKE ONE TABLET BY MOUT H TWICE A DAY SOLD: 06/02/2021 [facility] 10 mg 05/28/2021 12:00:00 AM EDT tablet 90 TAKE ONE TABLET BY MOUTH EVERY DAY TAKE ONE TABLET BY MOUTH EVERY DAY SOLD: 06/02/2021 [facility] Sutab Sutab 05/20/2021 12:00:00 AM EDT active [facility] ([facility]) 1.479-0.188- 0.225 gram 05/20/2021 12:00:00 AM EDT tablet 24 USE DIRECTED USE DIRECTED SOLD: 05/21/2021 [facility] . UNIT 04/08/2021 12:00:00 AM EDT Misc 6 WEAR DIRECTED WEAR DIRECTED SOLD: 04/08/2021 [facility] . UNIT 04/08/2021 12:00:00 AM EDT Misc 2 WEAR DIRECTED WEAR DIRECTED SOLD: 04/08/2021 [facility] 20 mg 12/31/2020 12:00:00 AM EDT capsule,delayed release (DR/EC) 180 TAKE ONE CAPSULE BY MOUTH TWICE A DAY TAKE ONE CAPSULE BY MOUTH TWICE A DAY SOLD: 01/05/2021 [facility] 20 mg 12/31/2020 12:00:00 AM EDT capsule,delayed release (DR/EC) 180 TAKE ONE CAPSULE BY MOUTH TWICE A DAY TAKE ONE CAPSULE BY MOUTH TWICE A DAY SOLD: 04/08/2021 [facility] 20 mg 12/31/2020 12:00:00 AM EDT capsule,delayed release (DR/EC) 180 TAKE ONE CAPSULE BY MOUTH TWICE A DAY TAKE ONE CAPSULE BY MOUTH TWICE A DAY SOLD: 07/07/2021 [facility] 80 mg 12/23/2020 12:00:00 AM EDT tablet 90 TAKE ONE TABLET BY MOUTH AT BEDTIME TAKE ONE TABLET BY MOUTH AT BEDTIME SOLD: 12/27/2020 [facility] 75 mg 12/23/2020 12:00:00 AM EDT tablet 90 TAKE ONE TABLET BY MOUTH EVERY DAY TAKE ONE TABLET BY MOUTH EVERY DAY SOLD: 12/27/2020 [facility] 75 mg 12/23/2020 12:00:00 AM EDT tablet 90 TAKE ONE TABLET BY MOUTH EVERY DAY TAKE ONE TABLET BY MOUTH EVERY DAY SOLD: 06/24/2021 [facility] 80 mg 12/23/2020 12:00:00 AM EDT tablet 90 TAKE ONE TABLET BY MOUTH AT BEDTIME TAKE ONE TABLET BY MOUTH AT BEDTIME SOLD: 03/26/2021 [facility] 80 mg 12/23/2020 12:00:00 AM EDT tablet 90 TAKE ONE TABLET BY MOUTH AT BEDTIME TAKE ONE TABLET BY MOUTH AT BEDTIME SOLD: 06/24/2021 [facility] 75 mg 12/23/2020 12:00:00 AM EDT tablet 90 TAKE ONE TABLET BY MOUTH EVERY DAY TAKE ONE TABLET BY MOUTH EVERY DAY SOLD: 03/26/2021 [facility] BD Uf Mini Pen Needle [id number] 12/19/2020 12:00:00 AM EDT active [facility] ([facility]) 20 mg 12/10/2020 12:00:00 AM EDT capsule,delayed release (DR/EC) 90 TAKE ONE CAPSULE BY MOUTH EVERY DAY TAKE ONE CAPSULE BY MOUTH EVERY DAY SOLD: 12/13/2020 [facility] 31 gauge x 3/16" 11/26/2020 12:00:00 AM EDT needle 200 DIRECTED TWO TIMES A DAY DIRECTED TWO TIMES A DAY SOLD: 03/01/2021 [facility] 31 gauge x 3/16" 11/26/2020 12:00:00 AM EDT needle 200 DIRECTED TWO TIMES A DAY DIRECTED TWO TIMES A DAY SOLD: 06/02/2021 [facility] 31 gauge x 3/16" 11/26/2020 12:00:00 AM EDT needle 200 DIRECTED TWO TIMES A DAY DIRECTED TWO TIMES A DAY SOLD: 11/29/2020 [facility] 12 % 10/22/2020 12:00:00 AM EST lotion 226 APPLY AFTER SHOWER 3-4 TIMES A WEEK APPLY AFTER SHOWER 3-4 TIMES A WEEK SOLD: 11/26/2020 [facility] 12 % 10/22/2020 12:00:00 AM EST lotion 226 APPLY AFTER SHOWER 3-4 TIMES A WEEK APPLY AFTER SHOWER 3-4 TIMES A WEEK SOLD: 10/26/2020 [facility] 100 mg 09/16/2020 12:00:00 AM EST tablet 30 TAKE ONE TABLET BY MOUTH EVERY DAY TAKE ONE TABLET BY MOUTH EVERY DAY SOLD: 09/18/2020 [facility] 100 mg 09/16/2020 12:00:00 AM EST tablet 30 TAKE ONE TABLET BY MOUTH EVERY DAY TAKE ONE TABLET BY MOUTH EVERY DAY SOLD: 10/20/2020 [facility] 20 mg 09/09/2020 12:00:00 AM EST capsule,delayed release (DR/EC) 90 TAKE ONE CAPSULE BY MOUTH EVERY DAY TAKE ONE CAPSULE BY MOUTH EVERY DAY SOLD: 09/12/2020 [facility] Onetouch Ultra 08/29/2020 12:00:00 AM EST act yajaira [facility] ([facility] BLOOD SUGAR DIAGNOSTIC 08/29/2020 12:00:00 AM EST strip 300 TEST THREE TIMES A DAY NEEDED TEST THREE TIMES A DAY NEEDED SOLD: 08/31/2020 [facility] BLOOD SUGAR DIAGNOSTIC 08/29/2020 12:00:00 AM EST strip 300 TEST THREE TIMES A DAY NEEDED TEST THREE TIMES A DAY NEEDED SOLD: 03/01/2021 [facility] BLOOD SUGAR DIAGNOSTIC 08/29/2020 12:00:00 AM EST strip 300 TEST THREE TIMES A DAY NEEDED TEST THREE TIMES A DAY NEEDED SOLD: 06/02/2021 [facility] BLOOD SUGAR DIAGNOSTIC 08/29/2020 12:00:00 AM EST strip 300 TEST THREE TIMES A DAY NEEDED TEST THREE TIMES A DAY NEEDED SOLD: 03/03/2021 [facility] BLOOD SUGAR DIAGNOSTIC 08/29/2020 12:00:00 AM EST strip 300 TEST THREE TIMES A DAY NEEDED TEST THREE TIMES A DAY NEEDED SOLD: 11/29/2020 [facility] 0.05 % 08/17/2020 12:00:00 AM EST ointment 50 APPLY TOPICALLY TO RIGHT HAND TWO TIMES A DAY APPLY TOPICALLY TO RIGHT HAND TWO TIMES A DAY SOLD: 09/18/19 21 [facility] 0.05 % 08/17/2020 12:00:00 AM EST ointment 45 APPLY TOPICALLY TO RIGHT HAND TWO TIMES A DAY APPLY TOPICALLY TO RIGHT HAND TWO TIMES A DAY SOLD: 10/20/19 21 [facility] 0.05 % 08/17/2020 12:00:00 AM EST ointment 50 APPLY TOPICALLY TO RIGHT HAND TWO TIMES A DAY APPLY TOPICALLY TO RIGHT HAND TWO TIMES A DAY SOLD: 08/18/20 20 [facility] 250 mg 08/14/2020 12:00:00 AM EST tablet 6 TAKE TWO TABLETS BY MOUTH AT ONCE ON THE FIRST DAY THEN TAKE ONE DAILY THEREAFTER TAKE TWO TABLETS BY MOUTH AT ONCE ON THE FIRST DAY THEN TAKE ONE DAILY THEREAFTER SOLD: 08/18/2020 [facility] 24 HR Metformin hydrochloride 500 MG Extended Release Oral T ablet METFORMIN HCL 08/02/2020 12:00:00 AM EST tablet extended release 24 hr 360 TAKE FOUR TABLETS BY MOUTH AT BEDTIME WITH FOOD TAKE FOUR TABLETS BY MOUTH AT BEDTIME WITH FOOD SOLD: 05/05/2021 [facility] 24 HR Metformin hydrochloride 500 MG Extended Release Oral T ablet METFORMIN HCL 08/02/2020 12:00:00 AM EST tablet extended release 24 hr 360 TAKE FOUR TABLETS BY MOUTH AT BEDTIME WITH FOOD TAKE FOUR TABLETS BY MOUTH AT BEDTIME WITH FOOD SOLD: 02/05/2021 [facility] 500 mg 08/02/2020 12:00:00 AM EST tablet extended release 24 hr 360 TAKE FOUR TABLETS BY MOUTH AT BEDTIME WITH FOOD TAKE FOUR TABLETS BY MOUTH AT BEDTIME WITH FOOD SOLD: 11/07/2020 [facility] 500 mg 08/02/2020 12:00:00 AM EST tablet extended release 24 hr 360 TAKE FOUR TABLETS BY MOUTH AT BEDTIME WITH FOOD TAKE FOUR TABLETS BY MOUTH AT BEDTIME WITH FOOD SOLD: 08/05/2020 [facility] 40 mg 07/31/2020 12:00:00 AM EST tablet 90 TAKE ONE TABLET BY MOUTH AT BEDTIME TAKE ONE TABLET BY MOUTH AT BEDTIME SOLD: 01/29/2021 [facility] 40 mg 07/31/2020 12:00:00 AM EST tablet 90 TAKE ONE TABLET BY MOUTH AT BEDTIME TAKE ONE TABLET BY MOUTH AT BEDTIME SOLD: 10/30/2020 [facility] 40 mg 07/31/2020 12:00:00 AM EST tablet 90 TAKE ONE TABLET BY MOUTH AT BEDTIME TAKE ONE TABLET BY MOUTH AT BEDTIME SOLD: 04/29/2021 [facility] 40 mg 07/31/2020 12:00:00 AM EST tablet 90 TAKE ONE TABLET BY MOUTH AT BEDTIME TAKE ONE TABLET BY MOUTH AT BEDTIME SOLD: 08/02/2020 [facility] 0.4 mg 07/30/2020 12:00:00 AM EST tablet, sublingual [address] ONE TABLET UNDER THE TONGUE EVERY 5 MINUTES FOR UP TO 3 DOSES NEEDED FOR CHEST PAIN. IF CHEST PAIN STILL PERSISTS CONTACT [address] ONE TABLET UNDER THE TONGUE EVERY 5 MINUTES FOR UP TO 3 DOSES NEEDED FOR CHEST PAIN. IF CHEST PAIN STILL PERSISTS CONTACT 911 SOLD: 08/02/2020 [facility] Omeprazole 20 MG Delayed Release Oral Capsule Omeprazole 07/29/2020 12:00:00 AM EST ORAL active [facility] ([facility] 100 mg 07/15/2020 12:00:00 AM EST tablet 30 TAKE ONE TABLET BY MOUTH EVERY DAY TAKE ONE TABLET BY MOUTH EVERY DAY SOLD: 08/18/2020 [facility] 100 mg 07/15/2020 12:00:00 AM EST tablet 30 TAKE ONE TABLET BY MOUTH EVERY DAY TAKE ONE TABLET BY MOUTH EVERY DAY SOLD: 07/19/2020 [facility] 40 mg 07/10/2020 12:00:00 AM EST tablet 45 TAKE 1/2 TABLET BY MOUTH ONCE DAILY TAKE 1/2 TABLET BY MOUTH ONCE DAILY SOLD: 01/05/2021 [facility] 40 mg 07/10/2020 12:00:00 AM EST tablet 45 TAKE 1/2 TABLET BY MOUTH ONCE DAILY TAKE 1/2 TABLET BY MOUTH ONCE DAILY SOLD: 07/10/2020 [facility] 40 mg 07/10/2020 12:00:00 AM EST tablet 45 TAKE 1/2 TABLET BY MOUTH ONCE DAILY TAKE 1/2 TABLET BY MOUTH ONCE DAILY SOLD: 10/07/2020 [facility] 40 mg 07/10/2020 12:00:00 AM EST tablet 45 TAKE 1/2 TABLET BY MOUTH ONCE DAILY TAKE 1/2 TABLET BY MOUTH ONCE DAILY SOLD: 04/08/2021 [facility] 100 unit/mL (3 mL) 07/08/2020 12:00:00 AM EST insulin pen 24 INJECT 28 UNITS ONCE DAILY SUBCUTANEOUSLY INJECT 28 UNITS ONCE DAILY SUBCUTANEOUSLY SOLD: 07/10/2020 [facility] 3 ML Insulin Glargine 100 UNT/ML Pen Injector [Lantus] 100 unit/mL (3 mL) INSULIN GLARGINE,HUM.REC.ANLOG 07/08/2020 12:00:00 AM EST insulin pen 24 INJECT 28 UNITS ONCE DAILY SUBCUTANEOUSLY INJECT 28 UNITS ONCE DAILY SUBCUTANEOUSLY SOLD: 12/18/2020 [facility] 100 unit/mL (3 mL) 07/08/2020 12:00:00 AM EST insulin pen 24 INJECT 28 UNITS ONCE DAILY SUBCUTANEOUSLY INJECT 28 UNITS ONCE DAILY SUBCUTANEOUSLY SOLD: 10/07/2020 [facility] 3 ML Insulin Glargine 100 UNT/ML Pen Injector [Lantus] 100 unit/mL (3 mL) INSULIN GLARGINE,HUM.REC.ANLOG 07/08/2020 12:00:00 AM EST insulin pen 24 INJECT 28 UNITS ONCE DAILY SUBCUTANEOUSLY INJECT 28 UNITS ONCE DAILY SUBCUTANEOUSLY SOLD: 03/16/2021 [facility] 20 mg 06/25/2020 12:00:00 AM EST capsule,delayed release (DR/EC) 90 TAKE ONE CAPSULE BY MOUTH EVERY DAY TAKE ONE CAPSULE BY MOUTH EVERY DAY SOLD: 06/26/2020 [facility] carvedilol 12.5 MG Oral Tablet CARVEDILOL 06/05/2020 12:00:00 AM EDT tablet 180 TAKE ONE TABLET BY MOUTH TWICE A DAY TAKE ONE TABLET BY MOUT H TWICE A DAY SOLD: 03/01/2021 [facility] 5 mg 06/05/2020 12:00:00 AM EDT tablet 90 TAKE ONE TABLET BY MOUTH EVERY DAY TAKE ONE TABLET BY MOUTH EVERY DAY SOLD: 03/01/2021 [facility] 5 mg 06/05/2020 12:00:00 AM EDT tablet 90 TAKE ONE TABLET BY MOUTH EVERY DAY TAKE ONE TABLET BY MOUTH EVERY DAY SOLD: 09/08/2020 [facility] carvedilol 12.5 MG Oral Tablet CARVEDILOL 06/05/2020 12:00:00 AM EDT tablet 180 TAKE ONE TABLET BY MOUTH TWICE A DAY TAKE ONE TABLET BY MOUT H TWICE A DAY SOLD: 08/31/2020 [facility] 5 mg 06/05/2020 12:00:00 AM EDT tablet 90 TAKE ONE TABLET BY MOUTH EVERY DAY TAKE ONE TABLET BY MOUTH EVERY DAY SOLD: 06/08/2020 [facility] carvedilol 12.5 MG Oral Tablet CARVEDILOL 06/05/2020 12:00:00 AM EDT tablet 180 TAKE ONE TABLET BY MOUTH TWICE A DAY TAKE ONE TABLET BY MOUT H TWICE A DAY SOLD: 11/29/2020 [facility] carvedilol 12.5 MG Oral Tablet CARVEDILOL 06/05/2020 12:00:00 AM EDT tablet 180 TAKE ONE TABLET BY MOUTH TWICE A DAY TAKE ONE TABLET BY MOUT H TWICE A DAY SOLD: 06/08/2020 [facility] 5 mg 06/05/2020 12:00:00 AM EDT tablet 90 TAKE ONE TABLET BY MOUTH EVERY DAY TAKE ONE TABLET BY MOUTH EVERY DAY SOLD: 12/09/2020 [facility] 10 mg 06/01/2020 12:00:00 AM EDT tablet 90 TAKE ONE TABLET BY MOUTH EVERY DAY TAKE ONE TABLET BY MOUTH EVERY DAY SOLD: 08/31/2020 [facility] 10 mg 06/01/2020 12:00:00 AM EDT tablet 90 TAKE ONE TABLET BY MOUTH EVERY DAY TAKE ONE TABLET BY MOUTH EVERY DAY SOLD: 03/01/2021 [facility] 10 mg 06/01/2020 12:00:00 AM EDT tablet 90 TAKE ONE TABLET BY MOUTH EVERY DAY TAKE ONE TABLET BY MOUTH EVERY DAY SOLD: 11/29/2020 [facility] 10 mg 06/01/2020 12:00:00 AM EDT tablet 90 TAKE ONE TABLET BY MOUTH EVERY DAY TAKE ONE TABLET BY MOUTH EVERY DAY SOLD: 06/01/2020 [facility] 0.6 mg/0.1 mL (18 mg/3 mL) 05/28/2020 12:00:00 AM EDT pen in jector 27 INJECT 1.8 MG ONCE DAILY SUBCUTANEOUSLY INJECT 1.8 MG ONCE DAILY SUBCUTANEOUSLY SOLD: 12/27/2020 [facility] 0.6 mg/0.1 mL (18 mg/3 mL) 05/28/2020 12:00:00 AM EDT pen in jector 27 INJECT 1.8 MG ONCE DAILY SUBCUTANEOUSLY INJECT 1.8 MG ONCE DAILY SUBCUTANEOUSLY SOLD: 03/01/2021 [facility] 0.6 mg/0.1 mL (18 mg/3 mL) 05/28/2020 12:00:00 AM EDT pen in jector 18 INJECT 1.8 MG ONCE DAILY SUBCUTANEOUSLY INJECT 1.8 MG ONCE DAILY SUBCUTANEOUSLY SOLD: 06/04/2020 [facility] 0.05 % 05/16/2020 12:00:00 AM EDT ointment 50 APPLY TOPICALLY TO RIGHT HAND TWO TIMES A DAY APPLY TOPICALLY TO RIGHT HAND TWO TIMES A DAY SOLD: 06/18/20 [facility] 0.05 % 05/16/2020 12:00:00 AM EDT ointment 50 APPLY TOPICALLY TO RIGHT HAND TWO TIMES A DAY APPLY TOPICALLY TO RIGHT HAND TWO TIMES A DAY SOLD: 05/17/20 [facility] 100 mg 05/16/2020 12:00:00 AM EDT tablet 30 TAKE ONE TABLET BY MOUTH EVERY DAY TAKE ONE TABLET BY MOUTH EVERY DAY SOLD: 05/17/2020 [facility] 100 mg 05/16/2020 12:00:00 AM EDT tablet 30 TAKE ONE TABLET BY MOUTH EVERY DAY TAKE ONE TABLET BY MOUTH EVERY DAY SOLD: 06/18/2020 [facility] 0.05 % 05/16/2020 12:00:00 AM EDT ointment 50 APPLY TOPICALLY TO RIGHT HAND TWO TIMES A DAY APPLY TOPICALLY TO RIGHT HAND TWO TIMES A DAY SOLD: 07/19/20 20 [facility] 10-8 mg/5 mL 05/15/2020 12:00:00 AM EDT suspension,extended rel 12 hr 60 TAKE 5 ML BY MOUTH EVERY 12 HOURS MAXIMUM DAILY DOSE = 10 ML TAKE 5 ML BY MOUTH EVERY 12 HOURS MAXIMUM DAILY DOSE = 10 ML SOLD: 05/17/2020 [facility] 75 mg 12/27/2019 12:00:00 AM EDT tablet 90 TAKE ONE TABLET BY MOUTH EVERY DAY TAKE ONE TABLET BY MOUTH EVERY DAY SOLD: 09/29/2020 [facility] 75 mg 12/27/2019 12:00:00 AM EDT tablet 90 TAKE ONE TABLET BY MOUTH EVERY DAY TAKE ONE TABLET BY MOUTH EVERY DAY SOLD: 07/01/2020 [facility] 80 mg 12/27/2019 12:00:00 AM EDT tablet 90 TAKE ONE TABLET BY MOUTH AT BEDTIME TAKE ONE TABLET BY MOUTH AT BEDTIME SOLD: 09/23/2020 [facility] atorvastatin 80 MG Oral Tablet ATORVASTATIN CALCIUM 12/27/2019 1 2:00:00 AM EDT tablet 90 TAKE ONE TABLET BY MOUTH AT BEDT DILEEP TAKE ONE TABLET BY MOUTH AT BEDTIME SOLD: 06/26/2020 [facility] 31 gauge x 3/16" 12/20/2019 12:00:00 AM EDT needle 200 USE DIRECTED TWO TIMES A DAY USE DIRECTED TWO TIMES A DAY SOLD: 09/23/2020 [facility] 31 gauge x 3/16" 12/20/2019 12:00:00 AM EDT needle 200 USE DIRECTED TWO TIMES A DAY USE DIRECTED TWO TIMES A DAY SOLD: 06/26/2020 [facility] ammonium lactate 120 MG/ML Topical Lotion AMMONIUM LACTATE 10/24/2019 12:00:00 AM EST lotion 225 APPLY AFTER SHOWER 3-4 TIMES A WEEK APPLY AFTER SHOWER 3-4 TIMES A WEEK SOLD: 07/01/2020 [facility] ammonium lactate 120 MG/ML Topical Lotion AMMONIUM LACTATE 10/24/2019 12:00:00 AM EST lotion 225 APPLY AFTER SHOWER 3-4 TIMES A WEEK APPLY AFTER SHOWER 3-4 TIMES A WEEK SOLD: 09/02/2020 [facility] BLOOD SUGAR DIAGNOSTIC 08/11/2019 12:00:00 AM EST strip 300 DIRECTED THREE TIMES A DAY NEEDED DIRECTED THREE TIMES A DAY NEEDED SOLD: 06/04/2020 [facility] 0.4 mg 07/28/2019 12:00:00 AM EST tablet, sublingual 25 PLACE ONE TABLET UNDER THE TONGUE EVERY 5 MINUTES FOR UP TO 3 DOSES NEEDED FOR CHEST PAIN. IF CHEST PAIN STILL PERSISTS CONTACT [address] ONE TABLET UNDER THE TONGUE EVERY 5 MINUTES FOR UP TO 3 DOSES NEEDED FOR CHEST PAIN. IF CHEST PAIN STILL PERSISTS CONTACT 911 SOLD: 06/26/2020 [facility] Insurance Providers Payer name Policy type / Coverage type Policy ID Covered alliance party ID Covered alliance party's relationship to mcmahon Policy Mcmahon Plan Information [employer] [id number] SP [id number] [employer] [id number] SP [id number] [employer] Medigap Part B [id number] Self [id number] [employer] Medigap Part B [id number] Self [employer] Medigap Part B [id number] Self [employer] Medigap Part B [id number] Self [id number] [place] Primary [id number] Self MEDICARE [id number] SP [id number] [place] Medicare Primary [id number] Self [id number] MEDICARE [id number] SP [id number] A Medicare (Part B) Medicare Primary [id number] Self [id number] Medicare (Part B) Medicare Primary [id number] Self [id number] [place] Primary [id number] Self [id number] Medicare (Part B) Medicare Primary [id number] Self [id number] [place] Primary [id number] Self [id number] Medicare [place] Medicare Primary [id number] Self [id number] Medicare [place] Medicare Primary [id number] Self [id number] [place] Medicare Primary [id number] Self [id number] Medicare (Part B) Medicare Primary [id number] Self [id number] Medicare [place] Medicare Primary [id number] Self [id number] Medicare (Part B) Medicare Primary [id number] Self [id number] [place] Primary [id number] Self [id number] Medicare (Part B) Medicare Primary [id number] Self Medicare Medicare Primary [id number] Self UMR [employer] [id number] SP [id number] UMR [employer] [id number] SP [id number] Umr Medigap Part B [id number] Self [id number] [employer] Medigap Part B [id number] Self Medicare Natl Gov't Servi Medicare Primary [id number] Self [employer] (pr) Medigap Part B [id number] Self Umr Medigap Part B [id number] Self [id number] UMR [employer] [id number] SP [id number] Umr (pr) Medigap Part B [id number] Self [id number] Umr (pr) Medigap Part B [id number] Self [id number] [employer] [facility]po [facility] Part B [id number] Self [id number] [employer] (pr) [facility] Part B [id number] Self [id number] Umr [facility] Part B [id number] Self [id number] Umr (pr) [facility] Part B [id number] Self [id number] [employer] PHCS Ppo [facility] Part B [id number] Self [id number] MEDICARE [id number] Allison [id number] A [employer] [id number] Allison [id number] Problems, Conditions, and Diagnoses Code Display Name Description Problem Type Effective Dates Data Source(s) [id number] Screening for malignant neoplasm of colo n Screening for malignant neoplasm of colon Problem 05/20/2021 12:00:00 AM EDT [facility] ([facility]) Surgeries/Procedures Procedure Description Date Indications Data Source(s) OFFICE OUTPATIENT VISIT 25 MINUTES 07/07/2021 12:00:00 AM EST [facility] ([facility] ) OFFICE OUTPATIENT NEW 45 MINUTES 05/20/2021 12:00:00 A M EDT [facility] ([facility]) Chronic Care MGMT 20 Mins Clinical Staff Time Per Calendar M [facility] 05/05/2021 12:00:00 AM EDT [facility] ([facility] Chronic Care MGMT 20 Mins Clinical Staff Time Per Calendar M [facility] 05/02/2021 12:00:00 AM EDT [facility] ([facility]) OFFICE OUTPATIENT VISIT 40 MINUTES 03/06/2021 12:00:00 AM EDT [facility] ([facility]) OFFICE OUTPATIENT VISIT 25 MINUTES 03/06/2021 12:00:00 AM EDT [facility] ([facility] ) Chronic Care MGMT 20 Mins Clinical Staff Time Per Calendar M [facility] 02/06/2021 12:00:00 AM EDT [facility] ([facility]) ECG ROUTINE ECG W/LEAST 12 LDS W/I&R 01/29/2021 12:00: 00 AM EDT [facility] ([facility]) OFFICE OUTPATIENT VISIT 25 MINUTES 01/29/2021 12:00:00 AM EDT [facility] ([facility]) Chronic Care MGMT 20 Mins Clinical Staff Time Per Calendar M [facility] 01/15/2021 12:00:00 AM EDT [facility] ([facility]) Chronic Care MGMT 20 Mins Clinical Staff Time Per Calendar M [facility] 12/20/2020 12:00:00 AM EDT [facility] ([facility]) Diabetic Foot Exam 11/21/2020 12:00:00 AM EDT [facility] ([facility] ) OFFICE OUTPATIENT VISIT 25 MINUTES 11/21/2020 12:00:00 AM EDT [facility] ([facility] ) Chronic Care MGMT 20 Mins Clinical Staff Time Per Calendar M [facility] 09/25/2020 12:00:00 AM EST [facility] ([facility]) ECG ROUTINE ECG W/LEAST 12 LDS W/I&R 07/30/2020 12:00: 00 AM EST [facility] ([facility]) Results ID Date Data Source [id number] 07/07/2021 09:46:00 AM EST [facility] ([facility]) Name Value Range Interpretation Code Description Data Kristal rce(s) Supporting Document(s) Glucose [Mass/volume] in Serum or Plasma 136 [facility] ([facility]) Hemoglobin A1c/Hemoglobin.total in Blood 8.1 [facility] ([facility]) ID Date Data Source [id number] 03/06/2021 08:49:00 AM EDT [facility] ([facility]) Name Value Range Interpretation Code Description Data Kristal rce(s) Supporting Document(s) Glucose [Mass/volume] in Serum or Plasma 89 [facility] ([facility] ) Hemoglobin A1c/Hemoglobin.total in Blood Laboratory test result [facility] ([facility]) ID Date Data Source [id number] 02/25/2021 08:55:00 AM EDT [facility] ([facility] ) Name Value Range Interpretation Code Description Data Kristal rce(s) Supporting Document(s) Blood Urea Nitrogen 28 mg/dL 7-18 [facility] ([facility]) Glucose, Fasting 98 mg/dL 70-100 [facility] ([facility] ) Creatinine For GFR 0.90 mg/dL 0.70-1.30 [facility] ([facility] ) Potassium Serum 4.0 meq/L 3.5-5.1 [facility] ([facility] ) Glomerular Filtration Rate Laboratory test result [facility] ([facility] ) <content>Units are mL/min/1.73 m2</content>
<content></content>
<content>Chronic Kidney Disease Staging per NKF:</content>
<content></content>
<content>Stage I & II GFR >=60 Normal to Mildly Decreased</content>
<content>Stage III GFR 30- 59 Moderately Decreased</content>
<content>Stage IV GFR 15-29 Severely Decreased</content>
<content>Stage V GFR <15 Very Little GFR Left</content>
<content>ESRD GFR <15 on RN TRANSITIONAL</content>
<content></content> Sodium Level 143 meq/L 136-145 [facility] ([facility]) Chloride Level 108 meq/L 98-107 [facility] ([facility]) Carbon Dioxide Level 29 meq/L 21-32 [facility] ([facility]) Calcium Level 8.7 mg/dL 8.8-10.2 [facility] ([facility]) Anion Gap 6 meq/L 8-16 [facility] ([facility]) Ast/Sgot 16 U/L 7-37 [facility] Alt/SGPT 39 U/L 12-78 [facility] ([facility]) Bilirubin,Total 1.0 mg/dL 0.2-1.0 [facility] ([facility]) Alkaline Phosphatase 48 U/L 45-117 [facility]) Albumin 3.8 GM/DL 3.2-5.2 [facility] Total Protein 6.3 GM/DL 6.4-8.2 [facility] ([facility]) Albumin/Globulin Ratio 1.5 [facility] ([facility]) ID Date Data Source [id number] 02/25/2021 08:55:00 AM EDT [facility] ([facility]) Name Value Range Interpretation Code Description Data Kristal rce(s) Supporting Document(s) Triglycerides Level 139 mg/dL [facility]) Cholesterol Level 129 mg/dL [facility] HDL Cholesterol 38 mg/dL [facility] ([facility]) Cholesterol Risk Ratio 3.394 [facility] ([facility]) Non-HDL-C 91 mg/dL [facility] ([facility]) LDL Cholesterol 63 mg/dL [facility] ([facility]) ID Date Data Source [id number] 02/25/2021 08:55:00 AM EDT [facility] ([facility]) Name Value Range Interpretation Code Description Data Kristal rce(s) Supporting Document(s) Creatinine [Mass/volume] in Urine 138.0 mg/dL [facility] ([facility]) Microalbumin [Mass/volume] in Urine 9.5 mg/L [facility] ([facility]) Microalbumin/Creatinine [Mass Ratio] in Urine 6.8 MCG/MG 0.0-30.0 [facility] ([facility]) THE [employer] STATES THAT MICROALBUMINURIA IS PRESENT IF THE MICROALBUMIN/CREATININE RATIO EXCEEDS 30 MCG/MG. THE THRESHOLD FOR CLINICAL ALBUMINURIA IS REACHED AT 300 MCG/MG. THE CLASSIFICATION OF A PATIENT SHOULD BE BASED UPON AT LEAST 2 OF 3 ABNORMAL RESULTS ON SPECIMENS COLLECTED WITHIN A 3 TO 6 MONTH TIME FRAME. ID Date Data Source [id number] 01/22/2021 08:19:00 AM EDT [facility] ([facility]) Name Value Range Interpretation Code Description Data Kristal rce(s) Supporting Document(s) Triglycerides Level 169 mg/dL [facility]) Cholesterol Level 122 mg/dL [facility]) HDL Cholesterol 39 mg/dL [facility] ([facility]) LDL Cholesterol 49 mg/dL [facility] ([facility]) Cholesterol Risk Ratio 3.128 [facility] ([facility]) Non-HDL-C 83 mg/dL [facility]) ID Date Data Source [id number] 01/22/2021 08:19:00 AM EDT [facility] ([facility]) Name Value Range Interpretation Code Description Data Kristal rce(s) Supporting Document(s) Glucose, Fasting 83 mg/dL 70-100 [facility] ([facility]) Creatinine For GFR 0.86 mg/dL 0.70-1.30 [facility] ([facility]) Blood Urea Nitrogen 25 mg/dL 7-18 [facility]) Glomerular Filtration Rate Laboratory test result [facility] ([facility]) <content>Units are mL/min/1.73 m2</content>
<content></content>
<content>Chronic Kidney Disease Staging per NKF:</content>
<content></content>
<content>Stage I & II GFR >=60 Normal to Mildly Decreased</content>
<content>Stage III GFR 30-59 Moderately Decreased</content>
<content>Stage IV GFR 15-29 Severely Decreased</content>
<content>Stage V GFR <15 Very Little GFR Left</content>
<content>ESRD GFR <15 on RN TRANSITIONAL</content>
<content></content> Sodium Level 144 meq/L 136-145 [facility] Chloride Level 108 meq/L 98-107 [facility] Carbon Dioxide Level 32 meq/L 21-32 [facility] ( [facility]) Potassium Serum 4.8 meq/L 3.5-5.1 [facility] ([facility]) Anion Gap 4 meq/L 8-16 [facility]) Calcium Level 8.9 mg/dL 8.8-10.2 [facility] ([facility]) Alkaline Phosphatase 53 U/L 45-117 [facility] ([facility]) Alt/SGPT 31 U/L 12-78 [facility]) Ast/Sgot 16 U/L 7-37 [facility]) Bilirubin,Total 1.3 mg/dL 0.2-1.0 [facility] ([facility]) Total Protein 6.4 GM/DL 6.4-8.2 [facility] ([facility]) Albumin/Globulin Ratio 1.5 [facility] ([facility]) Albumin 3.8 GM/DL 3.2-5.2 [facility] ([facility]) ID Date Data Source [id number] 01/22/2021 08:19:00 AM EDT [facility] ([facility]) Name Value Range Interpretation Code Description Data Kristal rce(s) Supporting Document(s) White Blood Count 5.2 10 4.0-10.0 [facility]) Red Blood Count 5.06 10 4.30-6.10 [facility] ([facility]) Hemoglobin 16.0 g/dL 13.5-17.5 [facility] ([facility]) Mean Corpuscular Volume 95.7 fl 80.0-96.0 M EDENT ([facility]) Hematocrit 48.4 % 42.0-52.0 [facility] ([facility]) Mean Corpuscular HGB Conc 33.1 g/dL 32.0-36.5 [facility] ([facility]) Mean Corpuscular Hemoglobin 31.6 pg 27.0-33.0 [facility] ([facility]) Platelet Count, Automated 162 10 150-450 [facility] ([facility]) Red Cell Distribution Width 12.6 % 11.5-14.5 [facility] ([facility]) Nucleated Red Blood Cell % 0.0 % 0-0 [facility] ([facility]) ID Date Data Source [id number] 01/22/2021 08:19:00 AM EDT [facility] Name Value Range Interpretation Code Description Data Kristal rce(s) Supporting Document(s) White Blood Count 5.2 10 4.0-10.0 [facility] Hematocrit 48.4 % 42.0-52.0 [facility] ([facility]) Hemoglobin 16.0 g/dL 13.5-17.5 [facility] ([facility]) Red Blood Count 5.06 10 4.30-6.10 [facility] ([facility]) Mean Corpuscular Hemoglobin 31.6 pg 27.0-33.0 [facility] ([facility]) Mean Corpuscular Volume 95.7 fl 80.0-96.0 M EDENT ([facility]) Red Cell Distribution Width 12.6 % 11.5-14.5 [facility] ([facility]) Platelet Count, Automated 162 10 150-450 [facility] ([facility]) Mean Corpuscular HGB Conc 33.1 g/dL 32.0-36.5 [facility] ([facility]) Nucleated Red Blood Cell % 0.0 % 0-0 [facility] ([facility]) ID Date Data Source [id number] 01/22/2021 08:19:00 AM EDT [facility] ([facility]) Name Value Range Interpretation Code Description Data Kristal rce(s) Supporting Document(s) Triglycerides Level 169 mg/dL [facility] Cholesterol Level 122 mg/dL [facility] LDL Cholesterol 49 mg/dL [facility] ([facility]) HDL Cholesterol 39 mg/dL [facility]) Non-HDL-C 83 mg/dL [facility] ([facility]) Cholesterol Risk Ratio 3.128 [facility] ([facility]) ID Date Data Source [id number] 01/22/2021 08:19:00 AM EDT [facility] Name Value Range Interpretation Code Description Data Kristal rce(s) Supporting Document(s) Blood Urea Nitrogen 25 mg/dL 7-18 [facility]) Glucose, Fasting 83 mg/dL 70-100 [facility] ([facility]) Creatinine For GFR 0.86 mg/dL 0.70-1.30 [facility] ([facility]) Glomerular Filtration Rate Laboratory test result [facility] ([facility]) <content>Units are mL/min/1.73 m2</content>
<content></content>
<content>Chronic Kidney Disease Staging per NKF:</content>
<content></content>
<content>Stage I & II GFR >=60 Normal to Mildly Decreased</content>
<content>Stage III GFR 30-59 Moderately Decreased</content>
<content>Stage IV GFR 15-29 Severely Decreased</content>
<content>Stage V GFR <15 Very Little GFR Left</content>
<content>ESRD GFR <15 on RN TRANSITIONAL</content>
<content></content> Potassium Serum 4.8 meq/L 3.5-5.1 [facility] ([facility]) Sodium Level 144 meq/L 136-145 [facility] ([facility] Anion Gap 4 meq/L 8-16 [facility] Chloride Level 108 meq/L 98-107 [facility] ([facility]) Carbon Dioxide Level 32 meq/L 21-32 [facility] ([facility] Calcium Level 8.9 mg/dL 8.8-10.2 [facility] ([facility]) Alt/SGPT 31 U/L 12-78 [facility] Ast/Sgot 16 U/L 7-37 [facility] Alkaline Phosphatase 53 U/L 45-117 [facility] ([facility] Bilirubin,Total 1.3 mg/dL 0.2-1.0 [facility] ([facility] Total Protein 6.4 GM/DL 6.4-8.2 [facility] ([facility]) Albumin 3.8 GM/DL 3.2-5.2 [facility] Albumin/Globulin Ratio 1.5 [facility] ([facility]) ID Date Data Source [id number] 11/21/2020 09:47:00 AM EDT [facility] ([facility]) Name Value Range Interpretation Code Description Data Kristal rce(s) Supporting Document(s) Glucose [Mass/volume] in Serum or Plasma 103 [facility] ([facility]) Hemoglobin A1c/Hemoglobin.total in Blood 7.5 [facility] ([facility]) ID Date Data Source [id number] 07/23/2020 08:36:00 AM EST [facility] ([facility]) Name Value Range Interpretation Code Description Data Kristal rce(s) Supporting Document(s) Glucose, Fasting 104 mg/dL 70-100 [facility] ([facility]) Blood Urea Nitrogen 20 mg/dL 7-18 [facility] ([facility]) Glomerular Filtration Rate Laboratory test result [facility] ([facility]) <content>Units are mL/min/1.73 m2</content>
<content></content>
<content>Chronic Kidney Disease Staging per NKF:</content>
<content></content>
<content>Stage I & II GFR >=60 Normal to Mildly Decreased</content>
<content>Stage III GFR 30- 59 Moderately Decreased</content>
<content>Stage IV GFR 15-29 Severely Decreased</content>
<content>Stage V GFR <15 Very Little GFR Left</content>
<content>ESRD GFR <15 on RN TRANSITIONAL</content>
<content></content> Creatinine For GFR 0.88 mg/dL 0.70-1.30 [facility] ([facility]) Sodium Level 140 meq/L 136-145 [facility] ([facility]) Potassium Serum 4.0 meq/L 3.5-5.1 [facility] ([facility]) Carbon Dioxide Level 30 meq/L 21-32 [facility] ([facility]) Chloride Level 106 meq/L 98-107 [facility] ([facility]) Anion Gap 4 meq/L 8-16 [facility] ([facility]) Calcium Level 9.4 mg/dL 8.8-10.2 [facility] ([facility]) ID Date Data Source [id number] 07/23/2020 08:36:00 AM EST [facility] ([facility]) Name Value Range Interpretation Code Description Data Kristal rce(s) Supporting Document(s) Glucose, Fasting 104 mg/dL 70-100 [facility] ([facility]) Blood Urea Nitrogen 20 mg/dL 7-18 [facility] ([facility]) Creatinine For GFR 0.88 mg/dL 0.70-1.30 [facility] ([facility]) Glomerular Filtration Rate Laboratory [facility]) <content>Units are mL/min/1.73 m2</content>
<content></content>
<content>Chronic Kidney Disease Staging per NKF:</content>
<content></content>
<content>Stage I & II GFR >=60 Normal to Mildly Decreased</content>
<content>Stage III GFR 30- 59 Moderately Decreased</content>
<content>Stage IV GFR 15-29 Severely Decreased</content>
<content>Stage V GFR <15 Very Little GFR Left</content>
<content>ESRD GFR <15 on RN TRANSITIONAL</content>
<content></content> Sodium Level 140 meq/L 136-145 [facility] ([facility]) Potassium Serum 4.0 meq/L 3.5-5.1 [facility] ([facility]) Chloride Level 106 meq/L 98-107 [facility] ([facility]) Carbon Dioxide Level 30 meq/L 21-32 [facility] ([facility]) Anion Gap 4 meq/L 8-16 [facility] Calcium Level 9.4 mg/dL 8.8-10.2 [facility] ([facility]) ID Date Data Source [id number] 05/27/2020 09:08:00 AM EDT [facility] ([facility]) Name Value Range Interpretation Code Description Data Kristal rce(s) Supporting Document(s) Hemoglobin A1c/Hemoglobin.total in Blood 7.3 [facility] ([facility]) Glucose [Mass/volume] in Serum or Plasma 158 [facility] ([facility]) Procedure Social History Code Duration Value Status Description Data Source(s ) Smoking 07/07/2021 12:00:00 AM EST Patient has never smoked co mpleted Patient has never smoked [facility] ([facility]) Smoking 01/29/2021 12:00:00 AM EDT Patient is a former smoker completed Patient is a former smoker [facility] ([facility]) Vital Signs ID Date Data Source UNK Name Value Range Interpretation Code Description Data Source(s) Systolic blood pressure 132 mm[Hg] 132 mm[Hg] M [facility] ([facility]) Diastolic blood pressure 76 mm[Hg] 76 mm[Hg] [facility] ([facility]) Heart rate 76 /min 76 /min [facility] ([facility]) Body height 66 [in_i] 66 [in_i] [facility] ([facility]) 5'6" Body weight 173.00 [lb_av] 173.00 [lb_av] [facility] T ([facility]) Body mass index (BMI) [Ratio] 27.9 kg/m2 27.9 k g/m2 [facility] ([facility]) Oxygen saturation in Arterial blood by Pulse oximetry 97 % 97 % [facility] ([facility]) Body height 67 [in_i] 67 [in_i] [facility] 5'7" Body weight 174.00 [lb_av] 174.00 [lb_av] [facility] T ([facility]) Systolic blood pressure 132 mm[Hg] 132 mm[Hg] M [facility]ENT ([facility]) Diastolic blood pressure 88 mm[Hg] 88 mm[Hg] [facility] ([facility]) Heart rate 63 /min 63 /min [facility] Body mass index (BMI) [Ratio] 27.2 kg/m2 27.2 k g/m2 [facility] ([facility]) Body weight 78.926 kg 78.926 kg [facility] ([facility] Body temperature 96.6 [degF] 96.6 [degF] [facility] ([facility]) Body height 66 [in_i] 66 [in_i] [facility] ([facility]) 5'6" Body weight 169.00 [lb_av] 169.00 [lb_av] [facility] T ([facility]) Body mass index (BMI) [Ratio] 27.3 kg/m2 27.3 k g/m2 [facility] ([facility] Oxygen saturation in Arterial blood by Pulse oximetry 98 % 98 % [facility] ([facility] Systolic blood pressure 124 mm[Hg] 124 mm[Hg] M [facility] ([facility] ) Diastolic blood pressure 63 mm[Hg] 63 mm[Hg] [facility] ([facility] Heart rate 77 /min 77 /min [facility] ([facility] Systolic blood pressure 128 mm[Hg] 128 mm[Hg] M [facility] ([facility]) sitting, regular cuff Body weight 170.00 [lb_av] 170.00 [lb_av] [facility] ([facility]) Diastolic blood pressure 66 mm[Hg] 66 mm[Hg] [facility] ([facility]) sitting, regular cuff Systolic blood pressure 126 mm[Hg] 126 mm[Hg] M [facility] ([facility]) sitting Diastolic blood pressure 66 mm[Hg] 66 mm[Hg] [facility] ([facility]) sitting Body height 68 [in_i] 68 [in_i] [facility] 5'8" Body mass index (BMI) [Ratio] 25.8 kg/m2 25.8 k g/m2 [facility] ([facility]) Heart rate 68 /min 68 /min [facility] ([facility]) Regular Respiratory rate 16 /min 16 /min [facility] ( [facility]) Oxygen saturation in Arterial blood by Pulse oximetry 96 % 96 % [facility] ([facility] Diastolic blood pressure 88 mm[Hg] 88 mm[Hg] [facility] ([facility] Body temperature 95.3 [degF] 95.3 [degF] [facility] ([facility] Body height 66 [in_i] 66 [in_i] [facility] ([facility] 5'6" Body mass index (BMI) [Ratio] 27.8 kg/m2 27.8 k g/m2 [facility] ([facility] Heart rate 71 /min 71 /min [facility] ([facility] Body weight 172.00 [lb_av] 172.00 [lb_av] [facility] T ([facility] ) Systolic blood pressure 160 mm[Hg] 160 mm[Hg] M [facility] ([facility] Body weight 168.00 [lb_av] 168.00 [lb_av] [facility] ([facility]) Heart rate 76 /min 76 /min [facility] ([facility]) Regular Respiratory rate 16 /min 16 /min [facility] ( [facility]) Systolic blood pressure 132 mm[Hg] 132 mm[Hg] M [facility] ([facility]) sitting, regular cuff Diastolic blood pressure 86 mm[Hg] 86 mm[Hg] [facility] ([facility]) sitting, regular cuff Systolic blood pressure 132 mm[Hg] 132 mm[Hg] M [facility] ([facility]) sitting Diastolic blood pressure 82 mm[Hg] 82 mm[Hg] [facility] ([facility]) sitting Body height 68 [in_i] 68 [in_i] [facility] ([facility]) 5'8" Body mass index (BMI) [Ratio] 25.5 kg/m2 25.5 k g/m2 [facility] ([facility]) Systolic blood pressure 150 mm[Hg] 150 mm[Hg] M [facility] ([facility] Diastolic blood pressure 98 mm[Hg] 98 mm[Hg] [facility] ([facility] Heart rate 60 /min 60 /min [facility] ([facility] Body temperature 96.2 [degF] 96.2 [degF] [facility] ([facility] Body height 66 [in_i] 66 [in_i] [facility] ([facility] 5'6" Body weight 170.00 [lb_av] 170.00 [lb_av] [facility] T ([facility] Body mass index (BMI) [Ratio] 27.4 kg/m2 27.4 k g/m2 [facility] ([facility] )
[2021-07-14] MEDS ORDERED: propofoL 200 MG/20 ML VIAL As Ordered ONE (11:19)
[2021-07-14] MEDS ORDERED: LIDOCAINE 2% 100MG/5ML SDV (FOR ANES.) As Ordered ONE (11:19)
[2021-07-14] MEDS ORDERED: fentaNYL 100 MCG/2 ML INJECTION (J3010) As Ordered ONE (11:19)
--- NOTE | 2021-07-14 11:27 | ROOR ---
Patient Name: Jose Armando Chaves Procedure Date: 07/14/2021 11:12 AM Date of : 1950 Age: 71 Room: [facility] Gender: Male Note Status: Finalized Procedure: Upper Endoscopy + Biopsies Indications: Dyspepsia, Heartburn, Exclusion of Lowe's esophagus Providers: Russel Castillo MD Referring MD: MIRNA THORNE MD Requesting Provider: Medicines: Monitored Anesthesia Care Complications: No immediate complications. Procedure: Pre-Anesthesia Assessment: - The heart rate, respiratory rate, oxygen saturations, blood pressure, adequacy of pulmonary ventilation, and response to care were monitored throughout the procedure. The Endoscope was introduced through the mouth, and advanced to the second part of duodenum. The upper GI endoscopy was accomplished without difficulty. The patient tolerated the procedure well. Findings: The Z-line was regular and was found 40 cm from the incisors. Multiple biopsies were obtained with cold forceps for evaluation to rule out Lowe's Esophagus randomly at the gastroesophageal junction. A small hiatal hernia was present. No other significant abnormalities were identified in a careful examination of the stomach. Biopsies were taken with a cold forceps in the gastric antrum for Helicobacter pylori testing. The exam of the duodenum was otherwise normal. Impression: - Z-line regular, 40 cm from the incisors. - Small hiatal hernia. - Multiple biopsies were obtained at the gastroesophageal junction. - Biopsies were taken with a cold forceps for Helicobacter pylori testing. - The examination was otherwise normal. Recommendation: - Patient has a contact number available for emergencies. The signs and symptoms of potential delayed complications were discussed with the patient. Return to normal activities tomorrow. Written discharge instructions were provided to the patient. - High fiber diet. - Discharge patient to home. - Follow an antireflux regimen. - Continue present medications. - Await pathology results. - Telephone GI clinic for pathology results in 1 week. - Return to referring physician. - The findings and recommendations were discussed with the patient. Procedure Code(s): --- Professional --- 88909, Esophagogastroduodenoscopy, flexible, transoral; with biopsy, single or multiple Diagnosis Code(s): --- Professional --- K44.9, Diaphragmatic hernia without obstruction or gangrene R10.13, Epigastric pain R12, Heartburn CPT copyright 2019 [employer]. All rights reserved. The codes documented in this report are preliminary and upon pot washer review may be revised to meet current compliance requirements. Russel Castillo MD Russel Castillo MD 07/14/2021 11:27:26 AM Electronically signed by Russel Castillo MD Number of Addenda: 0 Note Initiated On: 07/14/2021 11:12 AM Estimated Blood Loss: Estimated blood loss: none.
--- NOTE | 2021-07-14 11:44 | ROOR ---
Patient Name: Jose Armando Chaves Procedure Date: 07/14/2021 11:13 AM Date of : 1950 Age: 71 Room: [facility] Gender: Male Note Status: Finalized Procedure: Total Colonoscopy to Cecum Indications: Screening for colorectal malignant neoplasm Providers: Russel Castillo MD Referring MD: MIRNA THORNE MD Requesting Provider: Medicines: Monitored Anesthesia Care Complications: No immediate complications. Procedure: Pre-Anesthesia Assessment: - The heart rate, respiratory rate, oxygen saturations, blood pressure, adequacy of pulmonary ventilation, and response to care were monitored throughout the procedure. The Colonoscope was introduced through the anus and advanced to the cecum, identified by appendiceal orifice and ileocecal valve. The colonoscopy was performed without difficulty. The patient tolerated the procedure well. The quality of the bowel preparation was good. Findings: The perianal and digital rectal examinations were normal. Non-bleeding internal hemorrhoids were found during retroflexion. The hemorrhoids were small and Grade I (internal hemorrhoids that do not prolapse). Multiple small and large-mouthed diverticula were found in the recto-sigmoid colon, sigmoid colon and descending colon. The exam was otherwise without abnormality on direct and retroflexion views. Impression: - Non-bleeding internal hemorrhoids. - Diverticulosis in the recto-sigmoid colon, in the sigmoid colon and in the descending colon. - The examination was otherwise normal on direct and retroflexion views. - No specimens collected. - The exam was otherwise normal to the cecum. Recommendation: - Patient has a contact number available for emergencies. The signs and symptoms of potential delayed complications were discussed with the patient. Return to normal activities tomorrow. Written discharge instructions were provided to the patient. - High fiber diet. - Discharge patient to home. - Continue present medications. - Repeat colonoscopy is not recommended for screening purposes. - Return to referring physician. - The findings and recommendations were discussed with the patient. Procedure Code(s): --- Professional --- 58608, Colonoscopy, flexible; diagnostic, including collection of specimen(s) by brushing or washing, when performed (separate procedure) Diagnosis Code(s): --- Professional --- Z12.11, Encounter for screening for malignant neoplasm of colon K64.0, First degree hemorrhoids K57.30, Diverticulosis of large intestine without perforation or abscess without bleeding CPT copyright 2019 [employer]. All rights reserved. The codes documented in this report are preliminary and upon division leader review may be revised to meet current compliance requirements. Russel Castillo MD Russel Castillo MD 07/14/2021 11:44:33 AM Electronically signed by Russel Castillo MD Number of Addenda: 0 Note Initiated On: 07/14/2021 11:13 AM Estimated Blood Loss: Estimated blood loss: none.
[2021-07-14 12:11] VITALS: BP 117/62
== END 2021-07-14 12:14 | disposition home or self-care (01) ==
LOC: M OPP 09:07
PROVIDERS: ATTEND Internal Medicine Gastroenterology
DX: K64.0 First degree hemorrhoids (principal); K57.30 Diverticulosis of large intestine without perforation or abscess without bleeding; Z12.11 Encounter for screening for malignant neoplasm of colon; K44.9 Diaphragmatic hernia without obstruction or gangrene; R12 Heartburn; I25.2 Old myocardial infarction; Z95.5 Presence of coronary angioplasty implant and graft; E10.9 Type 1 diabetes mellitus without complications; I10 Essential (primary) hypertension; E78.5 Hyperlipidemia, unspecified; Z88.8 Allergy status to other drugs, medicaments and biological substances; Z79.899 Other long term (current) drug therapy; Z79.4 Long term (current) use of insulin
CPT/HCPCS: 43239; 88305; G0121; J3010

== ENCOUNTER → 2021-07-29 | Outpatient (CLI) | payer MEDICARE, OTHER ==
[~2021-07-29] MED LIST changes: -NS 1,000 ML IV ONE
[2021-07-29 10:28] LABS: BLOOD UREA NITROGEN 20 MG/DL (7-18); CALCIUM LEVEL 8.4 MG/DL (8.8-10.2); CARBON DIOXIDE LEVEL 33 MEQ/L (21-32); CHLORIDE LEVEL 106 MEQ/L (98-107); GLOMERULAR FILTRATION RATE > 60.0 (>42); GLUCOSE, FASTING 125 MG/DL (70-100); POTASSIUM SERUM 3.9 MEQ/L (3.5-5.1); SODIUM LEVEL 144 MEQ/L (136-145)
== END ==
LOC: M WUC 08:26
PROVIDERS: ATTEND Physician Assistant
DX: I50.32 Chronic diastolic (congestive) heart failure (principal)

== ENCOUNTER → 2021-08-25 | Outpatient (CLI) | payer MEDICARE, OTHER ==
[2021-08-25 10:30] LABS: BLOOD UREA NITROGEN 22 MG/DL (7-18); CALCIUM LEVEL 9.3 MG/DL (8.8-10.2); CARBON DIOXIDE LEVEL 32 MEQ/L (21-32); CHLORIDE LEVEL 105 MEQ/L (98-107); GLOMERULAR FILTRATION RATE > 60.0 (>42); GLUCOSE, FASTING 168 MG/DL (70-100); POTASSIUM SERUM 4.1 MEQ/L (3.5-5.1); SODIUM LEVEL 144 MEQ/L (136-145)
== END ==
LOC: M WUC 08:45
PROVIDERS: ATTEND Nurse Practitioner Family
DX: E11.65 Type 2 diabetes mellitus with hyperglycemia (principal)

== ENCOUNTER → 2022-01-28 | Outpatient (CLI) | payer MEDICARE, OTHER ==
[~2022-01-28] MED LIST changes: -FLUC150T PO; +FLUC150T9 PO; +OMEP-173 PO; -OMEP-218 PO
[2022-01-28 10:03] LABS: HEMATOCRIT 46.2 % (42.0-52.0); HEMOGLOBIN 15.6 g/dl (13.5-17.5); MEAN CORPUSCULAR HEMOGLOBIN 31.8 pg (27.0-33.0); MEAN CORPUSCULAR HGB CONC 33.8 g/dl (32.0-36.5); MEAN CORPUSCULAR VOLUME 94.1 fl (80.0-96.0); PLATELET COUNT, AUTOMATED 156 10^3/uL (150-450); RED BLOOD COUNT 4.91 10^6/uL (4.30-6.10); WHITE BLOOD COUNT 4.8 10^3/uL (4.0-10.0)
[2022-01-28 10:31] LABS: ALBUMIN 3.6 GM/DL (3.2-5.2); ALT/SGPT 30 U/L (12-78); BILIRUBIN,TOTAL 0.9 MG/DL (0.2-1.0); BLOOD UREA NITROGEN 22 MG/DL (7-18); CALCIUM LEVEL 9.2 MG/DL (8.8-10.2); CARBON DIOXIDE LEVEL 32 MEQ/L (21-32); CHLORIDE LEVEL 107 MEQ/L (98-107); CHOLESTEROL LEVEL 155 MG/DL (<200); CHOLESTEROL RISK RATIO 3.974 (<5); CREATININE FOR GFR 0.98 MG/DL (0.70-1.30); GLOMERULAR FILTRATION RATE > 60.0 (>42); GLUCOSE, FASTING 155 MG/DL (70-100); HDL CHOLESTEROL 39 MG/DL (>40); LDL CHOLESTEROL 71 MG/DL (<100); NON-HDL-C 116 MG/DL; POTASSIUM SERUM 3.9 MEQ/L (3.5-5.1); SODIUM LEVEL 143 MEQ/L (136-145); TOTAL PROTEIN 6.6 GM/DL (6.4-8.2); TRIGLYCERIDES LEVEL 224 MG/DL (<150)
== END ==
LOC: M WUC 08:06
PROVIDERS: ATTEND Physician Assistant
DX: I25.10 Atherosclerotic heart disease of native coronary artery without angina pectoris (principal); I50.32 Chronic diastolic (congestive) heart failure; E78.2 Mixed hyperlipidemia

== ENCOUNTER → 2022-02-02 | Outpatient (REF) | payer MEDICARE, OTHER ==
[2022-02-02 17:45] LABS: MALB URINE SIEMENS 18.6 MG/L; MAU/CREAT RATIO 18.6 MCG/MG (0.0-30.0)
== END ==
LOC: M LAB REF 16:36
PROVIDERS: ATTEND Nurse Practitioner Family
DX: E11.65 Type 2 diabetes mellitus with hyperglycemia (principal)

== ENCOUNTER → 2022-02-16 | Outpatient (CLI) | payer MEDICARE, OTHER | LOC: M RAD 11:10 | PROVIDERS: ATTEND Physician Assistant | DX: I65.23 Occlusion and stenosis of bilateral carotid arteries (principal) ==

== ENCOUNTER → 2022-07-29 | Outpatient (CLI) | payer MEDICARE, OTHER ==
[2022-07-29 10:30] LABS: BLOOD UREA NITROGEN 19 MG/DL (9-23); CALCIUM LEVEL 8.9 MG/DL (8.3-10.6); CARBON DIOXIDE LEVEL 30 MMOL/L (20-31); CHLORIDE LEVEL 107 MMOL/L (98-107); CREATININE FOR GFR 0.82 MG/DL (0.70-1.30); GLOMERULAR FILTRATION RATE > 60.0 (>42); GLUCOSE, FASTING 117 MG/DL (74-106); POTASSIUM SERUM 4.7 MMOL/L (3.5-5.1); SODIUM LEVEL 143 MMOL/L (136-145)
== END ==
LOC: M WUC 08:46
PROVIDERS: ATTEND Physician Assistant
DX: I50.32 Chronic diastolic (congestive) heart failure (principal)

== ENCOUNTER → 2023-02-01 | Outpatient (CLI) | payer MEDICARE, OTHER ==
[2023-02-01 11:04] LABS: HEMATOCRIT 46.3 % (42.0-52.0); HEMOGLOBIN 15.3 g/dl (13.5-17.5); MEAN CORPUSCULAR HEMOGLOBIN 32.1 pg (27.0-33.0); MEAN CORPUSCULAR VOLUME 97.3 fl (80.0-96.0); PLATELET COUNT, AUTOMATED 152 10^3/uL (150-450); RED BLOOD COUNT 4.76 10^6/uL (4.30-6.10); WHITE BLOOD COUNT 5.7 10^3/uL (4.0-10.0)
[2023-02-01 11:46] LABS: ALBUMIN 3.8 G/DL (3.2-5.2); ALKALINE PHOSPHATASE 53 U/L (46-116); ALT/SGPT 30 U/L (7.0-40); AST/SGOT 13 U/L (<34); BILIRUBIN,TOTAL 1.1 MG/DL (0.3-1.2); BLOOD UREA NITROGEN 22 MG/DL (9-23); CALCIUM LEVEL 8.8 MG/DL (8.3-10.6); CARBON DIOXIDE LEVEL 29 MMOL/L (20-31); CHLORIDE LEVEL 103 MMOL/L (98-107); CHOLESTEROL LEVEL 145 MG/DL (<200); CHOLESTEROL RISK RATIO 3.89 (<5); CREATININE FOR GFR 0.94 MG/DL (0.70-1.30); GLOMERULAR FILTRATION RATE > 60.0 (>42); GLUCOSE, FASTING 149 MG/DL (74-106); HDL CHOLESTEROL 37.2 MG/DL (>40); LDL CHOLESTEROL 43.8 MG/DL (<100); NON-HDL-C 107.8 MG/DL; POTASSIUM SERUM 4.1 MMOL/L (3.5-5.1); SODIUM LEVEL 141 MMOL/L (136-145); TRIGLYCERIDES LEVEL 320 MG/DL (<150)
== END ==
LOC: M WUC 08:11
PROVIDERS: ATTEND Physician Assistant
DX: I25.10 Atherosclerotic heart disease of native coronary artery without angina pectoris (principal); I50.32 Chronic diastolic (congestive) heart failure; E78.2 Mixed hyperlipidemia

== ENCOUNTER → 2023-03-05 | Outpatient (REF) | payer MEDICARE, OTHER ==
[2023-03-05 18:04] LABS: CREATININE, URINE 63.7 MG/DL; MAU/CREAT RATIO 14.1 MCG/MG (0.0-30.0)
== END ==
LOC: M LAB REF 17:08
PROVIDERS: ATTEND Nurse Practitioner Family
DX: E11.65 Type 2 diabetes mellitus with hyperglycemia (principal)

== ENCOUNTER → 2023-07-23 | Outpatient (CLI) | payer MEDICARE, OTHER ==
[2023-07-23 11:54] LABS: HEMATOCRIT 46.9 % (42.0-52.0); HEMOGLOBIN 15.7 g/dl (13.5-17.5); MEAN CORPUSCULAR HEMOGLOBIN 31.7 pg (27.0-33.0); MEAN CORPUSCULAR HGB CONC 33.5 g/dl (32.0-36.5); MEAN CORPUSCULAR VOLUME 94.6 fl (80.0-96.0); PLATELET COUNT, AUTOMATED 152 10^3/uL (150-450); RED BLOOD COUNT 4.96 10^6/uL (4.30-6.10); WHITE BLOOD COUNT 4.1 10^3/uL (4.0-10.0)
[2023-07-23 12:12] LABS: HEMOGLOBIN A1c 8.7 % (4.0-6.0)
[2023-07-23 12:16] LABS: PROSTATIC SPECIFIC AG MONITOR 0.36 NG/ML (< 4.00)
[2023-07-23 12:19] LABS: ALBUMIN 3.5 G/DL (3.2-5.2); ALKALINE PHOSPHATASE 57 U/L (46-116); ALT/SGPT 39 U/L (7.0-40); AST/SGOT 18 U/L (<34); BILIRUBIN,TOTAL 1.1 MG/DL (0.3-1.2); BLOOD UREA NITROGEN 22 MG/DL (9-23); CALCIUM LEVEL 8.9 MG/DL (8.3-10.6); CARBON DIOXIDE LEVEL 30 MMOL/L (20-31); CHLORIDE LEVEL 106 MMOL/L (98-107); CHOLESTEROL LEVEL 161 MG/DL (<200); CHOLESTEROL RISK RATIO 4.39 (<5); CREATININE FOR GFR 0.82 MG/DL (0.70-1.30); GLOMERULAR FILTRATION RATE > 60.0 (>42); GLUCOSE, FASTING 137 MG/DL (74-106); HDL CHOLESTEROL 36.6 MG/DL (>40); LDL CHOLESTEROL 68.2 MG/DL (<100); NON-HDL-C 124.4 MG/DL; SODIUM LEVEL 145 MMOL/L (136-145); TOTAL PROTEIN 6.3 G/DL (5.7-8.2); TRIGLYCERIDES LEVEL 281 MG/DL (<150)
[2023-07-23 12:20] LABS: TESTOSTERONE 312 NG/DL (241-827)
== END ==
LOC: M WUC 08:24
PROVIDERS: ATTEND Family Medicine
DX: I10 Essential (primary) hypertension (principal); E11.9 Type 2 diabetes mellitus without complications; E03.9 Hypothyroidism, unspecified; Z12.5 Encounter for screening for malignant neoplasm of prostate

== ENCOUNTER → 2023-08-09 | Outpatient (CLI) | payer MEDICARE, OTHER ==
[2023-08-09 10:02] LABS: BLOOD UREA NITROGEN 18 MG/DL (9-23); CALCIUM LEVEL 9.3 MG/DL (8.3-10.6); CARBON DIOXIDE LEVEL 30 MMOL/L (20-31); CHLORIDE LEVEL 107 MMOL/L (98-107); CREATININE FOR GFR 0.78 MG/DL (0.70-1.30); GLOMERULAR FILTRATION RATE > 60.0 (>42); GLUCOSE, FASTING 113 MG/DL (74-106); POTASSIUM SERUM 4.2 MMOL/L (3.5-5.1); SODIUM LEVEL 145 MMOL/L (136-145)
== END ==
LOC: M WUC 08:01
PROVIDERS: ATTEND Physician Assistant
DX: I50.32 Chronic diastolic (congestive) heart failure (principal)

== ENCOUNTER → 2024-03-07 | Outpatient (CLI) | payer MEDICARE, OTHER | LOC: M PLAIMG 08:16 | PROVIDERS: ATTEND Physician Assistant | DX: I35.8 Other nonrheumatic aortic valve disorders (principal); I27.29 Other secondary pulmonary hypertension ==

== ENCOUNTER → 2024-06-21 | Outpatient (CLI) | payer MEDICARE, OTHER ==
[2024-06-21 09:28] LABS: HEMATOCRIT 47.1 % (42.0-52.0); HEMOGLOBIN 15.7 g/dl (13.5-17.5); MEAN CORPUSCULAR HEMOGLOBIN 31.5 pg (27.0-33.0); MEAN CORPUSCULAR HGB CONC 33.3 g/dl (32.0-36.5); MEAN CORPUSCULAR VOLUME 94.6 fl (80.0-96.0); PLATELET COUNT, AUTOMATED 160 10^3/uL (150-450); RED BLOOD COUNT 4.98 10^6/uL (4.30-6.10); WHITE BLOOD COUNT 5.2 10^3/uL (4.0-10.0)
[2024-06-21 09:37] LABS: HEMOGLOBIN A1c 8.4 % (4.0-6.0)
[2024-06-21 09:51] LABS: URIC ACID 5.8 MG/DL (3.7-9.2)
[2024-06-21 09:55] LABS: ALBUMIN 3.7 G/DL (3.2-5.2); ALKALINE PHOSPHATASE 51 U/L (40-129); ALT/SGPT 31 U/L (7.0-40); AST/SGOT 16 U/L (<34); BILIRUBIN,TOTAL 1.2 MG/DL (0.3-1.2); BLOOD UREA NITROGEN 21 MG/DL (9-23); CALCIUM LEVEL 9.7 MG/DL (8.3-10.6); CARBON DIOXIDE LEVEL 31 MMOL/L (20-31); CHLORIDE LEVEL 108 MMOL/L (98-107); CHOLESTEROL LEVEL 135 MG/DL (<200); CHOLESTEROL RISK RATIO 4.12 (<5); CREATININE FOR GFR 0.83 MG/DL (0.70-1.30); GLOMERULAR FILTRATION RATE > 60.0 (>42); GLUCOSE, FASTING 104 MG/DL (74-106); HDL CHOLESTEROL 32.7 MG/DL (>40); LDL CHOLESTEROL 64.1 MG/DL (<100); NON-HDL-C 102.3 MG/DL; POTASSIUM SERUM 3.9 MMOL/L (3.5-5.1); PROSTATIC SPECIFIC AG MONITOR 0.38 NG/ML (< 4.00); SODIUM LEVEL 145 MMOL/L (136-145); TOTAL PROTEIN 6.4 G/DL (5.7-8.2); TRIGLYCERIDES LEVEL 191 MG/DL (<150)
[2024-06-21 09:59] LABS: TESTOSTERONE 258 NG/DL (241-827); THYROID STIMULATING HORMONE 2.174 uIU/ML (0.55-4.78); TOTAL 25(OH) VITAMIN D 76.3 NG/ML (20.0-100.0)
== END ==
LOC: M LAB 08:49
PROVIDERS: ATTEND Family Medicine
DX: I10 Essential (primary) hypertension (principal); E11.9 Type 2 diabetes mellitus without complications; R53.83 Other fatigue; Z79.899 Other long term (current) drug therapy

== ENCOUNTER → 2025-02-27 | Outpatient (CLI) | payer MEDICARE, OTHER ==
[~2025-02-27] MED LIST changes: +LISI40TA10 PO; -LISI40TA4 PO
[2025-02-27 11:04] LABS: ESTIMATED AVERAGE GLUCOSE 177.0 MG/DL (60-110)
[2025-02-27 11:27] LABS: CREATININE, URINE 122.1 MG/DL
[2025-02-27 11:28] LABS: MALB URINE SIEMENS 15.0 MG/L; MAU/CREAT RATIO 12.2 MCG/MG (0.0-30.0)
== END ==
LOC: M LAB 09:27
PROVIDERS: ATTEND Nurse Practitioner Family
DX: E11.65 Type 2 diabetes mellitus with hyperglycemia (principal)

== ENCOUNTER → 2025-02-27 | Outpatient (CLI) | payer MEDICARE, OTHER ==
[2025-02-27 10:30] LABS: PLATELET COUNT, AUTOMATED 176 10^3/uL (150-450)
[2025-02-27 10:59] LABS: PROSTATIC SPECIFIC AG MONITOR 0.36 NG/ML (< 4.00)
[2025-02-27 11:02] LABS: ALT/SGPT 25 U/L (7.0-40); AST/SGOT 20 U/L (<34); CALCIUM LEVEL 9.9 MG/DL (8.3-10.6); CARBON DIOXIDE LEVEL 29 MMOL/L (20-31); CHLORIDE LEVEL 106 MMOL/L (98-107); CHOLESTEROL LEVEL 137 MG/DL (<200); CHOLESTEROL RISK RATIO 3.40 (<5); CREATININE FOR GFR 0.84 MG/DL (0.70-1.30); GLOMERULAR FILTRATION RATE > 90.0 (>42); LDL CHOLESTEROL 68.0 MG/DL (<100); NON-HDL-C 96.8 MG/DL; POTASSIUM SERUM 4.4 MMOL/L (3.5-5.1); SODIUM LEVEL 146 MMOL/L (136-145); TRIGLYCERIDES LEVEL 144 MG/DL (<150)
[2025-02-27 11:03] LABS: TOTAL 25(OH) VITAMIN D 106.3 NG/ML (20.0-100.0)
[2025-02-27 11:04] LABS: ESTIMATED AVERAGE GLUCOSE 177.0 MG/DL (60-110); TESTOSTERONE 326 NG/DL (241-827)
== END ==
LOC: M LAB 09:24
PROVIDERS: ATTEND Family Medicine
DX: I10 Essential (primary) hypertension (principal); E03.9 Hypothyroidism, unspecified; R53.83 Other fatigue; E11.65 Type 2 diabetes mellitus with hyperglycemia; Z79.899 Other long term (current) drug therapy

== ENCOUNTER → 2025-03-29 | Outpatient (CLI) | payer MEDICARE, OTHER | LOC: M RAD 12:22 | PROVIDERS: ATTEND Physician Assistant | DX: I65.23 Occlusion and stenosis of bilateral carotid arteries (principal) ==